=== PATIENT | male | born 1980 | race Caucasian/White ===

== ENCOUNTER → 2017-02-06 | Outpatient (CLI) | payer MEDICARE, MEDICAID ==
[~2017-02-06] MED LIST: AMARYL 2MG TABLE2 MG PO; AUGMENTIN 875-1 EACH PO; BACTRIM DS 8001 TAB PO; BENAZEPRIL40 MG PO; CEPHALEXIN500 M2 PO; CLINDAMYCIN HC300 MG PO; ENDOCET 325 MG-1 TA1 PO; GLYBURIDE 5MG TA5 MG PO; HCTZ/LISINOPRIL1 TA3 PO; JANUVIA100 MG PO; KEFLEX 500MG.500 MG PO; LISINOPRIL/HCTZ1 TA3 PO; MEDROL 4MG. DOSE4 MG PO; METFORMIN1000 MG PO; MUCINEX1200 MG PO; PROMETHAZINE D118 ML PO; PROVENTIL0.09 MG/A1 IH; SEPTRA DS 800 M1 TAB PO; TESSALON PERLE100 M1 PO; VICODIN 5/500 T1 TAB PO
== END ==
LOC: SL 12:20
DX: I10 Essential (primary) hypertension (principal); E66.9 Obesity, unspecified; R07.89 Other chest pain; G47.33 Obstructive sleep apnea (adult) (pediatric); E78.5 Hyperlipidemia, unspecified; E11.9 Type 2 diabetes mellitus without complications; D75.1 Secondary polycythemia
CPT/HCPCS: G0399-TC

== ENCOUNTER 2017-04-30 12:36 | Emergency (ER) | payer MEDICARE, MEDICAID ==
[~2017-04-30] VITALS: Ht 185.4 cm; Wt 171.9 kg
--- OUTSIDE RECORDS SUMMARY | 2017-04-30 12:51 | External Medical Summary Rpt ---
Author Author , OMAR Nguyen OMAR Address Unknown Phone [email or web address] Care Team Providers Care Church Official Name Role Phone [facility], Unavailable Unavailable [facility], Unavailable Unavailable [facility] Unavailable Unavailable ANESTHESIA, [facility] RAMOS, RAMOS Unavailable Unavailable RODRÍGUEZ BEASLEY, Unavailable Unavailable RODRÍGUEZ BEASLEY, CATRACHITA ENCARNACION, Unavailable Unavailable CHATA CALIX DEPA, Unavailable Unavailable DHAVAL VELAZQUEZ Unavailable Unavailable IRAJ PUENTES, Unavailable Unavailable IRAJ PUENTES [facility] Unavailable Unavailable HOSPITAL, [facility] Unavailable Unavailable HOSPITA, [facility] Unavailable Unavailable PRACTICE, [facility], Unavailable Unavailable [facility] Unavailable Unavailable INC, [facility] Unavailable Unavailable HOSPITAL P, [facility] P [facility], Unavailable Unavailable [facility] MARA, Unavailable Unavailable MARA STEVE [facility] Unavailable Unavailable [facility], [facility] LAYLA RICH JR, JR Unavailable Unavailable [facility] Unavailable Unavailable [facility], [facility] M E D SUPPLIES, M E D Unavailable Unavailable SUPPLIES Carmen Puentes MD, Unavailable Unavailable RADHA Rodriguez MD, JR Unavailable Ashleigh Hernandez, RADHA MALDONADO [facility] Unavailable Unavailable LAB, [facility] HAILE CID, Unavailable Unavailable PALAKHAILE LYN ERIN, ERIN Unavailable Unavailable [id number], Unavailable Unavailable [id number] PINKY SONI AND Unavailable Unavailable JOHAN SANCHEZ, Unavailable Unavailable JOHAN SANCHEZ SHOTWELL Unavailable Unavailable SOL[facility] MORE, SOLVIK Unavailable Unavailable [facility] ESTHER SANTANA Unavailable Unavailable CAROLINE, CAROLINE SAGE, Unavailable Unavailable INC KIMBERLY GROVER, Unavailable Unavailable KIMBERLY GROVER JR, WECHMAN Unavailable Unavailable JR SHARP ARON Unavailable Unavailable Purpose Continuity of Care Document - 11-03-2008 through 2016 Problems Code Diagnosis DOS Provider Status E11.9 TYPE 2 04-15-2017 DIABETES MELLITUS WITHOUT COMPLICATIO NS E66.01 MORBID 04-15-2017 (SEVERE) OBESITY DUE TO EXCESS CALORIES I10 ESSENTIAL 04-15-2017 (PRIMARY) HYPERTENSIO N K21.9 GASTRO-ESOP 04-15-2017 HAGE[facility] REFLUX DISEASE WITHOUT ESOPHAGITIS K29.70 GASTRITIS, 04-15-2017 UNSPECIFIED , WITHOUT BLEEDING R10.13 EPIGASTRIC 04-15-2017 PAIN Z68.42 BODY MASS 04-15-2017 INDEX (BMI) 45.0-49.9, ADULT Z72.0 TOBACCO USE 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 C DRUGS E663 OVERWEIGHT 03-15-2017 [facility] E78.00 PURE 03-08-2017 HYPERCHOLES TEROLEMIA, UNSPECIFIED S61.012A LACERATION 03-08-2017 WITHOUT FOREIGN BODY OF LEFT THUMB WITHOUT DAMAGE TO NAIL, INITIAL ENCOUNTER S69.90XA UNSPECIFIED 03-08-2017 INJURY OF UNSPECIFIED WRIST, HAND AND FINGER(S), INITIAL ENCOUNTER W26.0XXA CONTACT 03-08-2017 WITH KNIFE, INITIAL ENCOUNTER Y92.009 UNSPECIFIED 03-08-2017 PLACE IN UNSPECIFIED [facility]ACE OF OCCURRENCE OF THE EXTERNAL CAUSE Z87.891 PERSONAL 03-08-2017 HISTORY OF NICOTINE DEPENDENCE E119 TYPE 2 03-03-2017 [facility] DIABETES COMMUNTIY MELLITUS HOSPITA WITHOUT COMPLICATIO NS E7800 PURE 03-03-2017 [facility] HYPERCHOLES COMMUNTIY TEROLEMIA HOSPITA UNSPECIFIED I10 ESSENTIAL 03-03-2017 [facility]IMARY N EMERGENCY HYPERTENSIO SERV N [id number] LACERATION 03-03-2017 [facility] W/O FB LT N EMERGENCY THUMB W/O SERV DAMAGE NAIL INIT T583HNU CONTACT 03-03-2017 [facility] WITH KNIFE N EMERGENCY INITIAL SERV ENCOUNTER S10541 PERSONAL 03-03-2017 [facility] HISTORY OF COMMUNTIY NICOTINE HOSPITA DEPENDENCE Z01.818 ENCOUNTER 02-26-2017 FOR OTHER PREPROCEDUR AL EXAMINATION Z71.3 DIETARY 02-26-2017 COUNSELING AND SURVEILLANC E E6601 MORBID 02-19-2017 [facility] OBESITY DUE INC TO EXCESS CALORIES Z720 TOBACCO USE 02-19-2017 [facility] INC U40899 OTHER LONG 02-19-2017 [facility] TERM [facility] CURRENT INC DRUG THERAPY 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 [facility] A INC E669 OBESITY 02-06-2017 [facility] UNSPECIFIED [facility] INC E785 HYPERLIPIDE 02-06-2017 [facility] UNSPECIFIED INC G4733 OBSTRUCTIVE 02-06-2017 [facility] SLEEP [facility] APNEA ADULT INC PEDIATRIC R0789 OTHER CHEST 02-06-2017 [facility] PAIN [facility] INC E12307 ENCOUNTER 02-05-2017 [facility] FOR OTHER [facility] PREPROCEDUR INC AL EXAMINATION G47.33 OBSTRUCTIVE 01-31-2017 SLEEP APNEA (ADULT) (PEDIATRIC) R07.9 CHEST PAIN, 01-31-2017 UNSPECIFIED R079 CHEST PAIN 01-29-2017 [facility] UNSPECIFIED COMMUNTIY HOSPITA 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 N GROUP R5383 OTHER 01-22-2017 [facility] FATIGUE PHYSICIANS GROUP R07.89 OTHER CHEST 01-16-2017 PAIN N529 MALE 01-15-2017 [facility] ERECTILE FAMILY DYSFUNCTION PRACTICE UNSPECIFIED R51 HEADACHE 01-05-2017 [facility] P J309 ALLERGIC 01-01-2017 [facility] RHINITIS FAMILY UNSPECIFIED PRACTICE J209 ACUTE 12-07-2016 [facility] UNSPECIFIED INC 250.00 250.00 DIAB 06-25-2013 [facility], TYPE Hospital II OR UNSPEC TYPE, NOT UNCNTRLD 305.1 305.1 06-25-2013 [place] TOBACCO USE [facility] 401.9 401.9 06-25-2013 [place] HYPERTENSIO [facility] 682.6 682.6 06-25-2013 [place] CELLULITIS [facility] V12.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 06-15-2013 [facility] METHICILLIN RESISTANT STAPHYLOCOC CUS AUREUS V5481 AFTERCARE 01-01-2012 [facility] JOINT [facility]OCIA REPLACEMENT 2689 UNSPECIFIED 12-03-2011 [facility] VITAMIN D [facility] DEFICIENCY HOSP 67987 MORBID 12-03-2011 [facility] OBESITY [facility] HOSP 2851 ACUTE 12-03-2011 [facility] POSTHEMORRH [facility]TH[facility]OX[facility] AGIC ANEMIA HOSP 30118 OBSTRUCTIVE 12-03-2011 [facility] SLEEP [facility] APNEA HOSP 60454 OTHER ACUTE 12-03-2011 [facility] [place] ANESTHESIA POSTOPERATI VE PAIN 76201 PRIMARY 12-03-2011 [facility]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 58890 LOC 12-03-2011 [facility] OSTEOARTHRO [facility]TH[facility]OX[facility] S NOT SPEC HOSP PRIM/SEC LOWER LEG 66577 PAIN IN 12-03-2011 [facility] [place] JOINT, ANESTHESIA LOWER LEG 7226 DEGENERATIO 12-03-2011 [facility] N [facility]TH[facility] INTERVERTEB HOSP RAL DISC SITE UNSPEC 12205 HYPOXEMIA 12-03-2011 [facility] V8543 BODY MASS 12-03-2011 [facility] INDEX [facility]THODOX[facility] 50.0-59.9 HOSP ADULT 02273 UNSPECIFIED 12-21-2008 D[facility] DISEASE OF JOHAN Ortiz PHARYNX 83068 UNSPECIFIED 12-21-2008 [facility] SLEEP JOHAN Ortiz APNEA 48891 DYSPHAGIA 12-21-2008 RAPHAEL SANCHEZIFIED JOHAN G 53800 OBESITY, 12-09-2008 [facility] UNSPECIFIED HEALTHCARE CENTER 7823 EDEMA 12-09-2008 [facility] HEALTHCARE CENTER 56338 OTHER 12-09-2008 [facility] ABNORMAL HEALTHCARE GLUCOSE CENTER 83146 DIAB W/O 12-02-2008 M E D MENTION SUPPLIES COMP TYPE II/UNS TYPE UNCNTRL 5110 PLEURISY 12-01-2008 [facility] WITHOUT HEALTHCARE MENTION CENTER EFFUS/[place] [address] CHEST PAIN 11-30-2008 [facility] UNSPECIFIED N EMERGENCY PHYS INC 07951 PRECORDIAL 11-28-2008 [facility] 91337 OTHER CHEST 11-28-2008 [facility] PROF SERV 4013 UNSPECIFIED 11-26-2008 [facility] ESSENTIAL HEALTHCARE HYPERTENSIO CENTER N 11638 ESOPHAGEAL 11-26-2008 [facility] REFLUX HEALTHCARE CENTER 23682 HYPERSOMNIA 11-22-2008 DANIEL WITH SLEEP JOHAN G APNEA UNSPECIFIED 2859 UNSPECIFIED 11-18-2008 [facility] 54057 OTHER 11-18-2008 [facility] INSUFFICIEN HOSPITAL CY NEC 43640 REFLUX 11-18-2008 PATHOLOGY & ESOPHAGITIS CYTOLOGY LAB 58619 OTHER 11-18-2008 [facility] DISORDER OF HOSPITAL STOMACH AND DUODENUM 5693 HEMORRHAGE 11-18-2008 [place] OF RECTUM ANESTHESIA AND ANUS GROUP PSC 50902 DIARRHEA 11-18-2008 [facility] 14535 HYPERTROPHY 11-15-2008 DANIEL OF TONSILS JOHAN Ortiz TRAVIS 28765 SHORTNESS 11-05-2008 [facility] [place] OF BREATH RADIOLOGY 21760 WHEEZING 11-05-2008 [facility] 04988 POLYURIA 11-04-2008 [facility] 7915 GLYCOSURIA 11-03-2008 [facility] E55.9 VITAMIN D DEFICIENCY, UNSPECIFIED J20.9 ACUTE BRONCHITIS, UNSPECIFIED R53.83 OTHER FATIGUE Allergies, Adverse Reactions, Alerts Type Allergy to substance Adverse Reaction to Substance Substance Reaction Severity NO KNOWN ALLERGIES Unknown Unknown Clinical Alert Notifications Alert Diabetes: no eye exam in the last 365 days Diabetes: no influenza vaccine in the last 365 days Diabetes: no urine protein screening in the last 365 days Medications Na ND Rx Da Fi Fi Am Da Di Ph RX Ph St me C No te ll ll ou ys ag ar # ys at rm s nt no ma ic us Or Da si cy ia de te s n re d LI 63 09 0 No DO 32 -2 CA 30 5- Lo IN 20 20 ng E 11 13 er HC 0 L Ac 1% ti ve AL CL 00 09 0 No IN 40 -2 DA 94 5- Lo MY 05 20 ng CI 50 13 er N 3 15 Ac 0 ti MG ve /M L AD DV AN SO 00 09 0 No DI 40 -2 UM 97 5- Lo 10 20 ng CH 16 13 er LO 7 RI Ac DE ti ve 0. 9% SO LN JUSTICE 51 09 0 No LF 07 -1 AM 90 6- Lo ET 12 20 ng HO 82 13 er XA 0 ZO Ac LE ti -T ve MP DS TA BL ET JUSTICE 51 03 0 No LF 07 -2 AM 90 1- Lo ET 12 20 ng HO 82 13 er XA 0 ZO Ac LE ti -T ve MP DS TA BL ET NE 00 02 03 01 30 30 BA 24 PO Ac XI 18 -1 -[address] ti UM 65 0- 6- 00 RS 45 ON ve [address] 03 09 09 PH HE 1 AR NR 40 MA Y CY MG CA PS UL E 00 03 03 00 30 30 BA 24 DA Ac 08 -0 -1 .0 KE 52 BN ti 51 4- 2- 00 RS 49 EY ve 71 20 20 80 09 09 PH GI 2 AR NA MA CY 00 03 03 00 21 7 RI 77 WA Ac 60 -0 -1 .0 TE 35 GN ti 34 3- 2- 00 18 ER ve 01 20 20 AI 92 09 09 D PH 8 PH IL AR LI M P #3 L 93 8 MS 00 02 03 00 6. 15 BA 24 DA Ac OV 08 -2 -1 70 KE 50 BN ti EN 51 7- 2- 0 RS 67 EY ve TI 13 20 20 L 20 09 09 PH GI HF 1 AR NA A MA 90 CY MC G IN PEÑA LE R ME 65 03 03 00 60 30 BA 24 DA Ac TF 86 -0 -1 .0 KE 52 BN ti OR 20 4- 2- 00 RS 48 EY ve VT 00 20 20 N 80 09 09 PH GI HC 5 AR NA L MA 50 CY 0 MG TA BL ET 00 03 03 00 15 3 RI 77 WA Ac 40 -0 -1 .0 TE 35 GN ti 60 3- 2- 00 19 ER ve 36 20 20 AI 30 09 09 D PH 1 PH IL AR LI M P #3 L 93 8 00 02 03 00 30 30 BA 24 DA Ac 08 -2 -1 .0 KE 50 BN ti 51 7- 2- 00 RS 68 EY ve 71 20 20 70 09 09 PH GI 1 AR NA MA CY FU 00 03 03 00 30 30 BA 24 DA Ac RO 17 -0 -1 .0 KE 52 BN ti SE 22 4- 2- 00 RS 50 EY ve VT 90 20 20 DE 78 09 09 PH GI 0 AR NA 40 MA CY MG TA BL ET 52 02 02 00 1. 1 BA 24 JE Ac 26 -1 -2 00 KE 43 NN ti 80 2- 6- 0 RS 51 IN ve 50 20 20 GS 20 09 09 PH -C 1 AR ON MA KL CY IN KA RE N NE 00 02 02 00 30 30 BA 24 PO Ac XI 18 -1 -[address] ti UM 65 0- 6- 00 RS 45 ON ve [address] 03 09 09 PH HE 1 AR NR 40 MA Y CY MG CA PS UL E HY 00 02 02 00 30 30 BA [address] 17 -0 -1 .0 KE 40 BN ti OC 22 5- 2- 00 RS 73 EY ve HL 08 20 20 OR 38 09 09 PH GI OT 0 AR NA HI MA AZ CY ID E 25 MG TA B Vital Signs 06-25-2013 00:36 Name Value Interpretat Reference Comment ion Range BP 90 mm[Hg] Diastolic BP Systolic 129 mm[Hg] Heart 111 /min Rate/Pulse O2% 95 % Respiratory 20 /min Rate 06-24-2013 22:56 Name Value Interpretat Reference Comment ion Range BP 94 mm[Hg] Diastolic BP Systolic 151 mm[Hg] Heart 93 /min Rate/Pulse O2% 99 % Respiratory 20 /min Rate 06-15-2013 22:33 Name Value Interpretat Reference Comment ion Range BP 100 mm[Hg] Diastolic BP Systolic 160 mm[Hg] Heart 100 /min Rate/Pulse O2% 96 % Respiratory 18 /min Rate 06-15-2013 22:32 Name Value Interpretat Reference Comment ion Range BP 100 mm[Hg] Diastolic BP Systolic 160 mm[Hg] Heart 100 /min Rate/Pulse O2% 96 % Respiratory 18 /min Rate 12-18-2012 23:40 Name Value Interpretat Reference Comment ion Range BP 70 mm[Hg] Diastolic BP Systolic 145 mm[Hg] Heart 102 /min Rate/Pulse O2% 93 % Respiratory 20 /min Rate 12-18-2012 22:55 Name Value Interpretat Reference Comment ion Range BP 86 mm[Hg] Diastolic BP Systolic 140 mm[Hg] Heart 110 /min Rate/Pulse O2% 97 % Respiratory 20 /min Rate Results Labs Lab Lab Date Result Refere Interp Status Commen Order Detail nces retati t Range on Hemoglobin A1c in Blood (02-19-2017 14:26) Hemoglo 7.8 % 0.0% High complet bin A1c 017 - ed in 14:26 7.0% Blood Procedures Procedure DOS Code Location Performer Comment SIMPLE 44214 [facility] 7 [facility]I SCALP/NEC EMERGENCY K/AX/SUZI SERV T/TRUNK 2.5CM/< [place] [address] [facility] THYROID 7 [facility] STIMULATI [place] [address] [facility] IRON 7 [place] [address] [facility] FOLIC 7 [facility] ACID INC INC SERUM COMPREHEN 59692 [facility] D[facility] SIVE 7 [facility] [address] [facility] VITAMIN A 7 [facility] INC INC COLLECTIO 55731 [facility] D[facility] N VENOUS 7 [facility] [place] [address] [facility] THIAMINE- 7 [facility] VITAMIN [place] B-1 [place] [address] [facility] PHOSPHORU 7 [facility] [place] [address] [facility] D[facility] PARATHORM 7 [facility] ONE INC INC ORGANIC 94919 [facility] ACID 1 7 [facility] [place] [address] [facility] MAGNESIUM 7 [place] [address] [facility] FERRITIN 7 [facility]OS[facility] INC INC 25 50846 [facility] D[facility] HYDROXY 7 [facility] INCLUDES INC INC FRACTIONS IF PERFORMED DRUG TEST G0480 [facility] DEFINITV [address] ID INC INC METH P DAY 1-7 DRUG CL BLOOD 37879 [facility] COUNT 7 [facility] COMPLETE INC INC AUTO&AUTO DIFRNTL WBC PREALBUMI 09307 [facility] N 7 [facility] INC INC HEMOGLOBI 03758 [facility] N 7 [facility] GLYCOSYLA INC INC SONAL A1C LIPID 73671 [facility] PANEL 7 [facility] INC INC HST G0399 AZCK ZACK W/TYPE 7 [facility] III INC INC PRTBLE MON UNATTENDE D MIN 4 CH ECG 09726 [facility] JANNETH ROUTINE 7 PHYSICIAN ECG S GROUP W/LEAST 12 LDS I&R ONLY ECG 20268 [facility] ROUTINE 7 [facility] ECG INC INC W/LEAST 12 LDS TRCG ONLY W/O I&R CV STRS 37883 [facility] SANTANA TST 7 N XERS&/OR CARDIOLOG RX CONT Y ECG W/O I&R CV STRS 51214 [facility] TST 7 N XERS&/OR CARDIOLOG RX CONT Y ECG I&R ONLY TECHNETIU A9502 [facility] TC-99M 7 N N TETROFOSM COMMUNTIY COMMUNTIY IN DX PER HOSPITA HOSPITA STUDY DOSE CV STRS 22927 [facility] TST 7 N N XERS&/OR COMMUNTIY COMMUNTIY RX CONT HOSPITA HOSPITA ECG TRCG ONLY ECHO 85288 [facility] TTHRC R-T 7 N N 2D COMMUNTIY COMMUNTIY W/WOM-MOD HOSPITA HOSPITA E COMPL SPEC&COLR D MYOCARDIA 51284 [facility] SPECT 7 N N MULTIPLE COMMUNTIY COMMUNTIY [place] [address] [facility] THYROXINE 7 MEM HOSP [facility] [place] [address] [facility] D[facility] THYROID 7 [facility] HOSP STIMULATI INC INC NG HORMONE TSH THERAPEUT 31662 [facility] 7 N FAMILY PROPHYLAC PRACTICE TIC/DX INJECTION SUBQ/IM ECG 79516 [facility] ROUTINE 7 [facility] HOSP ECG INC INC W/LEAST 12 LDS TRCG ONLY W/O I&R ECG 23472 [facility] JANNETH ROUTINE 7 PHYSICIAN ECG S GROUP W/LEAST 12 LDS I&R ONLY ECG 73196 [facility] RICH JR ROUTINE 7 [facility]PITAL W/LEAST P 12 LDS I&R ONLY RADIOLOGI 43020 [place] RAMOS C EXAM 7 MEDICAL CHEST 2 IMAGING VIEWS ASS FRONTAL&L ATERAL CREATINE 89210 [facility] KINASE MB 7 [facility] FRACTION INC INC ONLY COMPREHEN 68716 [facility] D[facility] SIVE 7 [facility] METABOLIC INC INC PANEL COLLECTIO 62023 [facility] D[facility] N VENOUS 7 [facility] HOSP BLOOD INC INC VENIPUNCT URE ECG 44995 [facility] ROUTINE 7 MEM HOS[facility] ECG INC INC W/LEAST 12 LDS TRCG ONLY W/O I&R THER 49959 [facility] PROPH/DX 7 MEM H[facility] NJX IV INC INC PUSH SINGLE/1S T SBST/DRUG CREATINE 64630 [facility] KINASE 7 [facility] H[facility] TOTAL INC INC THERAPEUT 34559 [facility] D[facility] IC 7 [facility] INJECTION INC INC IV PUSH EACH NEW DRUG BLOOD 59991 [facility] COUNT 7 [facility] COMPLETE INC INC AUTO&AUTO DIFRNTL WBC LIPID 48250 [facility] PANEL 7 [facility] [place] [address] [facility] D[facility] TROPONIN 7 [facility] HOSP QUANTITAT INC INC ANISH THERAPEUT 34830 [facility] RISHI IC 7 N FAMILY PROPHYLAC PRACTICE TIC/DX INJECTION SUBQ/IM INJ J0702 [facility] RISHI BETAMETHA 7 N FAMILY SONE PRACTICE ACETATE & PHOSPHATE 3 MG HOSPITAL G0463 [facility] D[facility] OUTPATIEN 7 MEM H[facility] MEM [facility]OS[facility] T CLIN INC INC VISIT ASSESS & MGMT PT IAADIADOO 27579 [facility] 7 MEM HOS[facility] INFLUENZA INC INC IAADIADOO 87524 [facility] DIXNO 7 MEM HOSP [facility] STREPTOCO INC INC CCUS GROUP A THERAPEUT 71583 [facility] ERIN IC 7 N FAMILY PROPHYLAC PRACTICE TIC/DX INJECTION SUBQ/IM RADIOLOGI 71847 ADAL [facility]ER[facility] 2 EXAMINATI ORTHOPEDI ON KNEE C ASSOCIA 1/2 VIEWS ARTHRP 36675 ADAL MCGINNIS 2 CONDYLE&P ORTHOPEDI LATU C ASSOCIA MEDIAL&LA T COMPARTME NTS INJECTION 83927 [facility] 2 [place] MORE ANESTHETI ANESTHESI [place] [address] [facility] GUIDANCE 2 [place] MORE NEEDLE ANESTHESI PLACEMENT A IMG S&I ANESTH 64972 [facility] OPEN/SURG 2 [place] MORE ARTHRS ANESTHESI TOTAL A KNEE ARTHROPLA STY TOTAL 8154 [facility] KNEE 2 [facility] HOSP NT LARYNGOSC 13371 DANIEL SANCHEZ, MAURO 9 JOHAN Ortiz FLEXIBLE DIAGNOSTI C NORMAL A4256 M E D M E D LOW AND 9 SUPPLIES SUPPLIES HIGH CALIBRATO R SOLUTION/ CHIPS BLD GLU A4253 M E D M E D TEST/REAG 9 SUPPLIES SUPPLIES T STRIPS HOME BLD GLU MON-50 REPL RICK A4235 M E D M E D LITHIUM 9 SUPPLIES SUPPLIES MED NECES HAN BG MON OWN PT EA LANCETS A4259 M E D M E D PER BOX 9 SUPPLIES SUPPLIES OF 100 SPRING-PO A4258 M E D M E D WERED 9 SUPPLIES SUPPLIES DEVICE FOR LANCET EACH HEADGEAR A7035 CAROLINE VELAZQUEZ, USED 9 INC INC W/POSITIV E AIRWAY PRESSURE DEVICE CONTINUOU E0601 CAROLINE VELAZQUEZ, S 9 INC INC POSITIVE AIRWAY PRESSURE DEVICE FILTER A7038 [facility] VELAZQUEZ, DISPBL 9 INC INC USED W/POS ARWAY PRESSURE DEVICE NASL A7034 CAROLINE VELAZQUEZ INTRFCE 9 INC INC POS ARWAY PRSS DEVC W/WO HEAD STRAP TUBING A7037 CAROLINE VELAZQUEZ, USED WITH 9 INC INC POSITIVE AIRWAY PRESSURE DEVICE ECG 88830 [facility], ROUTINE 9 ROSI KIMBERLY L ECG EMERGENCY W/LEAST PHYS INC 12 LDS I&R ONLY RADIOLOGI 89232 [facility] [place] CLARITA, C EXAM 9 RADIOLOGY DAVID G CHEST 2 VIEWS FRONTAL&[place] [address] [facility] AMYLASE 9 [facility] INC INC COMPREHEN 32535 [facility] D[facility] SIVE 9 [facility] METABOLIC INC INC PANEL CREATINE 88756 [facility] D[facility] KINASE 9 [facility] H[facility] [place] [place] [address] [facility] D[facility] LIPASE 9 [facility] H[facility] INC INC CREATINE 37600 [facility] KINASE MB 9 [facility] H[facility] FRACTION INC INC ONLY ECG 69995 [facility] D[facility] ROUTINE 9 [facility] ECG INC INC W/LEAST 12 LDS TRCG ONLY W/O I&R RADIOLOGI 21821 Erik GROSS 9 MEDICAL RODRÍGUEZ EXAMINATI IMAGING ON CHEST ASSOCIATE SINGLE S VIEW FRONTAL BLOOD 64334 [facility] COUNT 9 [facility]OS[facility] COMPLETE INC INC AUTO&AUTO DIFRNTL WBC HEMOGLOBI 51068 [facility] D[facility] N 9 [facility] HOSP GLYCOSYLA INC INC SONAL A1C RHYTHM 18359 [facility] ECG 1-3 9 [facility] HOSP LEADS INC INC TRACING ONLY W/O I&R ECG 39417 ZACK MTZMISg ROUTINE 9 [facility] RADHA F W/LEAST PROF SERV 12 LDS [place] [address] [facility] D[facility] TROPONIN 9 [facility] HOSP QUANTITAT INC INC ANISH NONINVASI 24223 [facility], 9 [facility] EAR/PULSE E CENTER OXIMETRY SINGLE DETER POLYSOM 20461 [facility] 6/>YRS 9 N N SLEEP 4/> [facility] JAMAAL ATTND EGD 05200 MCCLURE- MCCLURE- TRANSORAL 9 ANITA, ANITA, BIOPSY POWER STEVE SINGLE/MU LTIPLE GLUC BLD 18504 [facility] GLUC MNTR 9 N N DEV [facility] FDA SPEC HOME USE RADIOLOGI 31379 [facility] C 9 N N EXAMINATI [facility] SINGLE VIEW FRONTAL UNCLASSIF J3490 [facility] IED DRUGS 9 N N [facility] SPCL STN 15884 PATHOLOGY PATHOLOGY 2 I&R 9 & & EXCPT CYTOLOGY CYTOLOGY MICROORG/ LAB LAB ENZYME/IM CYT COLONOSCO 88511 [facility] PY 9 N N W/BIOPSY [facility] LTIPLE ANES [address] [place] DEPA, UPPER GI 9 ANESTHESI CHATA ENDOSCOPY A GROUP [place] [address] PATHOLOGY PATHOLOGY SURG 9 & & PATHOLOGY CYTOLOGY CYTOLOGY LAB LAB GROSS&JOANNE ROSCOPIC EXAM UNLISTED 285[facility] ANESTHESI 9 N N A [facility] LARYNGOS[facility] 62954 DANIEL SANCHEZ, MAURO 9 JOHAN Ortiz FLEXIBLE DIAGNOSTI C RADIOLOGI 02178 [facility] C EXAM 9 N N CHEST 2 [facility] FRONTAL&L ATERAL HEMOGLOBI 69349 [facility] N 9 AMERIC AMERIC GLYCOSYLA HOLDING HOLDING SONAL A1C COLLECTIO 53860 HORIZON CATRACHITA, N VENOUS 9 [facility] BLOOD E CENTER VENIPUNCT URE GENERAL 41461 LAB [facility] 9 AMERIC AMERIC PANEL HOLDING HOLDING LIPID 46163 LAB [facility] PANEL 9 [employer]IC [employer] HOLDING URNLS DIP 62802 HORIZON CATRACHITA, 9 [facility] SH[facility]ANK STICK/TAB E CENTER LET RGNT AUTO W/O MICROSCOP Y OTHER 86.04 Carmen ALCAZAR & Dhaval CARRION SUBQ I D Encounters Encounter Start End Date Code Location Performer Type Date OFFICE 87588 [facility] DHAVAL CHENEN 7 7 PHYSICIAN T VISIT 5 S GROUP MINUTES [facility] - 7 7 N OUTPATIEN COMMUNTIY T HOSPITA EMERGENCY 73105 [facility] 7 7 ROSI DEPARTMEN EMERGENCY T VISIT SERV MODERATE SEVERITY EMERGENCY 76744 [facility] 7 7 N DEPARTMEN COMMUNTIY T VISIT HOSPITA HIGH/URGE NT SEVERITY OFFICE 16221 [facility] DHAVAL CHENEN 7 7 PHYSICIAN T VISIT S GROUP 15 MINUTES [facility] ZACK - OTHER 7 7 [facility] - 7 7 [facility] OUTPATIEN INC T OFFICE 50297 [facility] JANNETH OUTPATIEN 7 7 PHYSICIAN T VISIT S GROUP 25 MINUTES [facility]OSP[facility] - 7 7 [facility] OUTPATIEN INC T HOSPITAL [facility] - 7 7 N OUTPATIEN COMMUNTIY T HOSPITA OFFICE 52993 [facility] DHAVAL OUTPATIEN 7 7 PHYSICIAN T VISIT S GROUP 15 MINUTES HOSPITAL [facility] - OTHER 7 7 [facility] INC OFFICE 10223 [facility] OUTPATIEN 7 7 PHYSICIAN T NEW 60 S GROUP MINUTES HOSPITAL [facility] - 7 7 [facility] OUTPATIEN INC T EMERGENCY 67026 [facility] ENRIQUE PUENTES DEPT 7 7 PHYSICIAN VISIT S, [facility] HIGH SEVERITY& THREAT [facility] ZACK - 7 7 [facility] OUTPATIEN INC T EMERGENCY 42315 ZACK 7 7 [facility] DEPARTMEN INC T VISIT HIGH/URGE NT SEVERITY [facility] T VIS[facility] PRACTICE 15 MINUTES [facility] - 7 7 [facility] OUTPATIEN INC T Emergency KAYLEEN Puentes MD (ER) 3 22:00 3 00:36 [facility] Emergency KAYLEEN Puentes MD (ER) 3 22:08 3 22:33 [facility] Emergency KAYLEEN Holley (ER) 3 22:31 3 23:40 [facility] CENTRAL - 2 2 ORTHODOXY INPATIENT HOSP OFFICE 06234 DANIEL SANCHEZ OUTPATIEN 9 9 JOHAN Ortiz T VISIT 25 MINUTES OFFICE 75461 [place] 9 9 [facility] T VISIT E CENTER 15 MINUTES OFFICE 92611 CASSANDRA DOMÍNGUEZ OUTPATIEN 9 9 [facility] T VISIT E CENTER 15 MINUTES EMERGENCY 73496 [facility] DEPT 9 9 ROSI KIMBERLY Dorantes VISIT EMERGENCY HIGH PHYS INC SEVERITY& THREAT FUN OFFICE 56576 DANIEL SANCHEZ OUTPATIEN 9 9 JOHAN Ortiz T VISIT 15 MINUTES HOSPITAL [facility] - 9 9 [facility] OUTPATIEN INC T EMERGENCY 57649 KARMEN PUENTES, DEPT 9 9 [facility] S VISIT CORPORATI HIGH ON SEVERITY& THREAT FUN EMERGENCY 15502 ZACK 9 9 [facility] DEPARTMEN INC T VISIT HIGH/URGE NT SEVERITY OFFICE 39734 [facility] MACK DOMÍNGUEZ 9 9 [facility] T VISIT E CENTER 25 MINUTES [facility] - 9 9 N [facility] - 9 9 N [facility] OFFICE 26134 DANIEL SANCHEZ, SADAF 9 9 JOHAN Ortiz ION NEW/ESTAB PATIENT 60 MIN OFFICE 94808 [facility]ACK [place] 9 9 [facility] V[facility] 15 MINUTES [facility] - 9 9 N [facility]
--- OUTSIDE RECORDS SUMMARY | 2017-04-30 12:51 | External Medical Summary Rpt ---
Author Author , OMAR Nguyen OMAR Address Unknown Phone [email or web address] Care Team Providers Care Keypunch Operators Supervisor Name Role Phone [facility], [facility]available Unavailable [facility], Unavailable Unavailable [facility] [place] Unavailable Unavailable [facility], [facility] [place] [facility] RAMOS, RAMOS Unavailable Unavailable RODRÍGUEZ BEASLEY, Unavailable Unavailable RODRÍGUEZ BEASLEY, CATRACHITA ENCARNACION, Unavailable Unavailable CHATA CALIX DEPA, Unavailable Unavailable DHAVAL VELAZQUEZ Unavailable Unavailable IRAJ PUENTES, Unavailable Unavailable IRAJ PUENTES [facility] Unavailable Unavailable HOSPITAL, [facility] Unavailable Unavailable HOSPITA, [facility] Unavailable Unavailable PRACTICE, [facility] DAVID OTTO, Unavailable Unavailable DAVID OTTO [facility] Unavailable Unavailable INC, [facility] Unavailable Unavailable HOSPITAL P, [facility] P [facility], Unavailable Unavailable [facility] MARA, Unavailable Unavailable MARA STEVE KAREN [facility] Unavailable Unavailable [facility], [facility] LAYLA RICH JR, JR Unavailable Unavailable [facility] Unavailable Unavailable [facility], [facility] M E D SUPPLIES, M E D Unavailable Unavailable SUPPLIES Carmen Puentes MD, Unavailable Unavailable RADHA Rodriguez MD, JR Unavailable Ashleigh Hernandez, RADHA MALDONADO [facility] Unavailable Unavailable LAB, [facility] HAIEL CID, Unavailable Unavailable PALAKHAILE LYN ERIN, ERIN Unavailable Unavailable [id number], Unavailable Unavailable [id number] PINKY SONI AND Unavailable Unavailable JOHAN SANCHEZ, Unavailable Unavailable JOHAN SANCHEZ SHOTWELL Unavailable Unavailable SOLVIK MORE, SOLVI[facility] Unavailable Unavailable [facility] Unavailable Unavailable [facility] SERV, [facility] ESTHER SANTANA Unavailable Unavailable CAROLINE, [...] 45.0-49.9, ADULT Z72.0 TOBACCO USE 04-15-2017 Z79.84 TRIBAL JUDGE 04-15-2017 (CURRENT) USE OF ORAL HYPOGLYCEMI C DRUGS E663 OVERWEIGHT 03-15-2017 [facility] E78.00 PURE 03-08-2017 HYPERCHOLES TEROLEMIA, UNSPECIFIED S61.012A LACERATION 03-08-2017 WITHOUT FOREIGN BODY OF LEFT THUMB WITHOUT DAMAGE TO NAIL, INITIAL ENCOUNTER S69.90XA UNSPECIFIED 03-08-2017 INJURY OF UNSPECIFIED WRIST, HAND AND FINGER(S), INITIAL ENCOUNTER W26.0XXA CONTACT 03-08-2017 WITH KNIFE, INITIAL ENCOUNTER Y92.009 UNSPECIFIED 03-08-2017 PLACE IN UNSPECIFIED [facility] RES[facility]ENCE THE PLACE OF OCCURRENCE OF THE EXTERNAL CAUSE Z87.891 PERSONAL 03-08-2017 HISTORY OF NICOTINE DEPENDENCE E119 TYPE 2 03-03-2017 [place] DIABETES COMMUNTIY MELLITUS HOSPITA WITHOUT COMPLICATIO NS E7800 PURE 03-03-2017 [place] HYPERCHOLES COMMUNTIY TEROLEMIA HOSPITA UNSPECIFIED I10 ESSENTIAL 03-03-2017 [facility] PRIMARY N EMERGENCY HYPERTENSIO SERV N X84269V LACERATION 03-03-2017 [facility] W/O FB LT N EMERGENCY THUMB W/O SERV DAMAGE NAIL INIT W718HBG CONTACT 03-03-2017 [place] WITH KNIFE N EMERGENCY INITIAL SERV ENCOUNTER Q44713 PERSONAL 03-03-2017 [place] HISTORY OF COMMUNTIY NICOTINE HOSPITA DEPENDENCE Z01.818 ENCOUNTER 02-26-2017 FOR OTHER PREPROCEDUR AL EXAMINATION Z71.3 DIETARY 02-26-2017 COUNSELING AND SURVEILLANC E E6601 MORBID 02-19-2017 [facility] SE[facility]ERE [facility] OBESITY DUE INC TO EXCESS CALORIES Z720 TOBACCO USE 02-19-2017 [facility] INC O58710 OTHER LONG 02-19-2017 [facility] TERM [facility] CURRENT INC DRUG THERAPY 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 [facility] A INC E669 OBESITY 02-06-2017 [facility] UNSPECIFIED [facility] H[facility] INC E785 HYPERLIPIDE 02-06-2017 [facility] UNSPECIFIED INC G4733 OBSTRUCTIVE 02-06-2017 [facility] SLEEP [facility] APNEA ADULT INC PEDIATRIC R0789 OTHER CHEST 02-06-2017 [facility] PAIN [facility] INC S29014 ENCOUNTER 02-05-2017 [facility] FOR OTHER [facility] PREPROCEDUR INC AL EXAMINATION G47.33 OBSTRUCTIVE 01-31-2017 SLEEP APNEA (ADULT) (PEDIATRIC) R07.9 CHEST PAIN, 01-31-2017 UNSPECIFIED R079 CHEST PAIN 01-29-2017 [place] UNSPECIFIED COMMUNTIY HOSPITA 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 N GROUP R5383 OTHER 01-22-2017 [facility] FATIGUE PHYSICIANS GROUP R07.89 OTHER CHEST 01-16-2017 PAIN N529 MALE 01-15-2017 [place] ERECTILE FAMILY DYSFUNCTION PRACTICE UNSPECIFIED R51 HEADACHE 01-05-2017 [facility] P J309 ALLERGIC 01-01-2017 [place] RHINITIS FAMILY UNSPECIFIED PRACTICE J209 ACUTE 12-07-2016 [facility] UNSPECIFIED INC 250.00 250.00 DIAB 06-25-2013 [facility], TYPE Hospital II OR UNSPEC TYPE, NOT UNCNTRLD 305.1 305.1 06-25-2013 [place] TOBACCO USE [facility] 401.9 401.9 06-25-2013 [place] HYPERTENSIO [facility] Hospital 682.6 682.6 06-25-2013 [place] CELLULITIS [facility] V12.04 V12.04 06-15-2013 [facility] METHICILLIN RESISTANT STAPHYLOCOC CUS AUREUS V5481 AFTERCARE 01-01-2012 [place] [facility] JOINT ASSOCIA REPLACEMENT 2689 UNSPECIFIED 12-03-2011 [facility] VITAMIN D [facility] DEFICIENCY HOSP 86015 MORBID 12-03-2011 [facility] OBESITY [facility] 2851 ACUTE 12-03-2011 [facility] POSTHEMORRH [facility] AGIC ANEMIA HOSP 76326 OBSTRUCTIVE 12-03-2011 [facility] SLEEP [facility] APNEA HOSP 52407 OTHER ACUTE 12-03-2011 [facility] [place] ANESTHESIA POSTOPERATI VE PAIN 63913 PRIMARY 12-03-2011 [place]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 80020 LOC 12-03-2011 [facility] OSTEOARTHRO [facility] S NOT SPEC HOSP PRIM/SEC LOWER LEG 03208 PAIN IN 12-03-2011 [facility] [place] JOINT, ANESTHESIA LOWER LEG 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 SITE UNSPEC 52754 HYPOXEMIA 12-03-2011 [facility] V8543 BODY MASS 12-03-2011 [facility] INDEX [facility] 50.0-59.9 HOSP ADULT 19696 UNSPECIFIED 12-21-2008 DANIEL DISEASE OF JOHAN Ortiz PHARYNX 26861 UNSPECIFIED 12-21-2008 DANIEL SLEEP JOHAN Ortiz APNEA 77917 DYSPHAGIA 12-21-2008 RAPHAEL SANCHEZIFIED JOHAN G 31159 OBESITY, 12-09-2008 [facility] UNSPECIFIED HEALTHCARE CENTER 7823 EDEMA 12-09-2008 [facility] HEALTHCARE CENTER 34999 OTHER 12-09-2008 [facility] ABNORMAL HEALTHCARE GLUCOSE CENTER 68741 DIAB W/O 12-02-2008 M E D MENTION SUPPLIES COMP TYPE II/UNS TYPE UNCNTRL 5110 PLEURISY 12-01-2008 [facility] WITHOUT HEALTHCARE MENTION CENTER EFFUS/[place] [address] CHEST PAIN 11-30-2008 [facility] UNSPECIFIED N EMERGENCY PHYS INC 24097 PRECORDIAL 11-28-2008 [place] 95135 OTHER CHEST 11-28-2008 [facility] PROF SERV 4014 UNSPECIFIED 11-26-2008 [facility] ESSENTIAL HEALTHCARE HYPERTENSIO CENTER N 29009 ESOPHAGEAL 11-26-2008 [facility] REFLUX HEALTHCARE CENTER 14963 HYPERSOMNIA 11-22-2008 DANIEL WITH SLEEP JOHAN G APNEA UNSPECIFIED 2859 UNSPECIFIED 11-18-2008 [facility] 17598 OTHER 11-18-2008 [place] PULMONARY [facility] CY NEC 54930 REFLUX 11-18-2008 PATHOLOGY & ESOPHAGITIS CYTOLOGY LAB 76872 OTHER 11-18-2008 [facility] STOMACH AND DUODENUM 5693 HEMORRHAGE 11-18-2008 [place] OF RECTUM ANESTHESIA AND ANUS GROUP PSC 99527 DIARRHEA 11-18-2008 [facility] 36998 HYPERTROPHY 11-15-2008 DANIEL OF TONSILS JOHAN Ortiz TRAVIS 06081 SHORTNESS 11-05-2008 [facility] [place] OF BREATH RADIOLOGY 80360 WHEEZING 11-05-2008 [facility] 82289 POLYURIA 11-04-2008 [facility] 7915 GLYCOSURIA 11-03-2008 [facility] E55.9 VITAMIN D DEFICIENCY, UNSPECIFIED J20.9 ACUTE [...] LI M P #3 L 93 8 UT 00 02 03 00 6. 15 BA [...] 4- 2- 00 RS 48 EY ve LA 00 20 20 N 80 09 09 [...] 4- 2- 00 RS 50 EY ve LA 90 20 20 DE 78 09 09 [...] Procedure DOS Code Location Performer Comment SIMPLE 81153 [facility] REPA[facility] 7 ROSI SCALP/NEC EMERGENCY K/AX/SUZI SERV T/TRUNK 2.5CM/< [place] [address] [facility] DIXON THYROID 7 [facility] STIMULATI [place] [address] Z[facility] DIXON IRON 7 [place] [address] ZACK DIXON FOLIC 7 MEM HOS[facility] ACID INC INC SERUM COMPREHEN 36948 Z[facility] DIX[facility] SIVE 7 [facility] [address] Z[facility] DIXON VITAMIN A 7 MEM H[facility]OS[facility] INC INC COLLECTIO 45841 [facility] DIX[facility] N VENOUS 7 MEM [facility] [place] [address] ZACK DIXON THIAMINE- 7 MEM HOSP MEM HOSP VITAMIN INC INC B-1 [place] [address] ZACK DIXON PHOSPHORU 7 MEM HOS[facility] [place] [address] Z[facility] DIXON PARATHORM 7 MEM HOSP [facility]OS[facility] ONE INC INC ORGANIC 20240 ZACK DIXON ACID 1 7 MEM H[facility] [place] [address] ZACK DIXON MAGNESIUM 7 [place] [address] ZACK DIXON FERRITIN 7 MEM HOSP [facility]OS[facility] INC INC 25 92619 ZACK DIXON HYDROXY 7 MEM HOS[facility] INCLUDES INC INC FRACTIONS IF PERFORMED DRUG TEST G0480 [facility] DEFINITV [address] ID INC INC METH P DAY 1-7 DRUG CL BLOOD 82088 [facility]ACK DIXON COUNT 7 MEM H[facility] MEM [facility]OS[facility] COMPLETE INC INC AUTO&AUTO DIFRNTL WBC PREALBUMI 38362 ZACK DIXON N 7 MEM HOSP MEM HOSP INC INC HEMOGLOBI 84167 ZACK DIXON N 7 MEM HOSP MEM HOSP GLYCOSYLA INC INC SONAL A1C LIPID 01459 [facility] DIXON PANEL 7 MEM HOSP MEM HOSP INC INC HST G0399 ZACK ZACK W/TYPE 7 MEM HOSP [facility]OS[facility] III INC INC PRTBLE MON UNATTENDE D MIN 4 CH ECG 43473 [facility] JANNETH ROUTINE 7 PHYSICIAN ECG S GROUP W/LEAST 12 LDS I&R ONLY ECG 56913 ZACK DIXON ROUTINE 7 MEM HOSP [facility] ECG INC INC W/LEAST 12 LDS TRCG ONLY W/O I&R CV STRS 30281 GLEN[facility] SANTANA TST 7 N XERS&/OR CARDIOLOG RX CONT Y ECG W/O I&R CV STRS 45285 [facility] TST 7 N XERS&/OR CARDIOLOG RX CONT Y ECG I&R ONLY TECHNETIU A9502 [facility] TC-99M 7 N N TETROFOSM COMMUNTIY COMMUNTIY IN DX PER HOSPITA HOSPITA STUDY DOSE CV STRS 98743 [facility] TST 7 N N XERS&/OR COMMUNTIY COMMUNTIY RX CONT HOSPITA HOSPITA ECG TRCG ONLY ECHO 47258 [facility] TTHRC R-T 7 N N 2D COMMUNTIY COMMUNTIY W/WOM-MOD HOSPITA HOSPITA E COMPL SPEC&COLR D MYOCARDIA 58346 [facility] SPECT 7 N N MULTIPLE COMMUNTIY COMMUNTIY [place] [address] Z[facility] DIXON THYROXINE 7 MEM HOSP [facility] [place] [address] ZACK DIXON THYROID 7 [facility] HOSP STIMULATI INC INC NG HORMONE TSH THERAPEUT 92337 [facility] 7 N FAMILY PROPHYLAC PRACTICE TIC/DX INJECTION SUBQ/IM ECG 46305 ZACK DIXON ROUTINE 7 [facility] HOSP ECG INC INC W/LEAST 12 LDS TRCG ONLY W/O I&R ECG 38144 [facility] JANNETH ROUTINE 7 PHYSICIAN ECG S GROUP W/LEAST 12 LDS I&R ONLY ECG 24401 ZACK RICH JR ROUTINE [address] [facility] HOSPITAL W/LEAST P 12 LDS I&R ONLY RADIOLOGI 60635 [place] RAMOS C EXAM 7 MEDICAL CHEST 2 IMAGING VIEWS ASS FRONTAL&L ATERAL CREATINE 62780 ZACK DIXON KINASE MB 7 [facility] FRACTION INC INC ONLY COMPREHEN 09753 ZACK DIXON SIVE 7 [facility] METABOLIC INC INC PANEL COLLECTIO 16989 ZACK DIXON N VENOUS 7 [facility] HOSP BLOOD INC INC VENIPUNCT URE ECG 51682 [facility]ACK DIXON ROUTINE 7 MEM HOSP [facility] ECG INC INC W/LEAST 12 LDS TRCG ONLY W/O I&R THER 52391 [facility] DIXON PROPH/DX 7 MEM HOSP [facility] NJX IV INC INC PUSH SINGLE/1S T SBST/DRUG CREATINE 14489 ZACK DIXON KINASE 7 MEM HOSP [facility] TOTAL INC INC THERAPEUT 92826 ZACK DIXON IC 7 [facility] INJECTION INC INC IV PUSH EACH NEW DRUG BLOOD 29017 ZACK DIXON COUNT 7 [facility] COMPLETE INC INC AUTO&AUTO DIFRNTL WBC LIPID 57579 [facility] DIXON PANEL 7 [facility] [place] [address] ZACK DIXON TROPONIN 7 [facility] HOSP QUANTITAT INC INC ANISH THERAPEUT 21165 [facility] RISHI IC 7 N FAMILY PROPHYLAC PRACTICE TIC/DX INJECTION SUBQ/IM INJ J0702 [facility] RISHI BETAMETHA 7 N FAMILY SONE PRACTICE ACETATE & PHOSPHATE 3 [facility] G0463 [facility] D[facility] OUTPATIEN 7 MEM HOSP MEM HOSP T CLIN INC INC VISIT ASSESS & MGMT PT IAADIADOO 34697 ZACK DIXON 7 MEM HOSP [facility] INFLUENZA INC INC IAADIADOO 51239 ZACK DIXON 7 MEM HOSP [facility] STREPTOCO INC INC CCUS GROUP A THERAPEUT 29245 [facility] ERIN IC 7 N FAMILY PROPHYLAC PRACTICE TIC/DX INJECTION SUBQ/IM RADIOLOGI 31409 ADAL GERMAIN 2 EXAMINATI ORTHOPEDI ON KNEE C ASSOCIA 1/2 VIEWS ARTHRP 44112 ADAL MCGINNIS 2 CONDYLE&P ORTHOPEDI LATU C ASSOCIA MEDIAL&LA T COMPARTME NTS INJECTION 35105 [facility] 2 [place] MORE ANESTHETI ANESTHESI [place] [address] [facility] GUIDANCE 2 [place] MORE NEEDLE ANESTHESI PLACEMENT A IMG S&I ANESTH 47252 [facility] OPEN/SURG 2 [place] MORE ARTHRS ANESTHESI TOTAL A KNEE ARTHROPLA STY TOTAL 8154 [facility] KNEE 2 [facility] HOSP NT LARYNGOSC 09353 DANIEL SANCHEZ, MAURO 9 JOHAN Ortiz FLEXIBLE [...] INC INC POSITIVE AIRWAY PRESSURE DEVICE ECG 05953 [facility], ROUTINE 9 ROSI KIMBERLY L ECG EMERGENCY W/LEAST PHYS INC 12 LDS I&R ONLY RADIOLOGI 39364 [facility] [place] CLARITA, C EXAM 9 RADIOLOGY DAVID G CHEST 2 VIEWS FRONTAL&[place] [address] ZACK DIXON AMYLASE 9 MEM HOSP MEM HOSP INC INC COMPREHEN 67831 [facility] D[facility] SIVE 9 MEM HOSP [facility] METABOLIC INC INC PANEL CREATINE 79707 [facility] DIXON KINASE 9 MEM HOSP [facility] [place] [address] ZACK DIXON LIPASE 9 MEM HOSP [facility] INC INC CREATINE 75640 ZACK DIXON KINASE MB 9 MEM HOSP [facility]OS[facility] FRACTION INC INC ONLY ECG 72001 ZACK DIXON ROUTINE 9 MEM HOSP [facility] ECG INC INC W/LEAST 12 LDS TRCG ONLY W/O I&R RADIOLOGI 29741 Erik GROSS 9 MEDICAL RODRÍGUEZ EXAMINATI IMAGING ON CHEST ASSOCIATE SINGLE S VIEW FRONTAL BLOOD 03900 Z[facility] DIXON COUNT 9 MEM HOSP MEM HOSP COMPLETE INC INC AUTO&AUTO DIFRNTL WBC HEMOGLOBI 37929 ZACK DIXON N 9 [facility] HOSP GLYCOSYLA INC INC SONAL A1C RHYTHM 91510 ZACK DIXON ECG 1-3 9 [facility] HOSP LEADS INC INC TRACING ONLY W/O I&R ECG 26775 ZACK MTZMISg ROUTINE 9 [facility] RADHA F W/LEAST PROF SERV 12 LDS I&[place] [address] ZACK DIXON TROPONIN 9 [facility] HOSP QUANTITAT INC INC ANISH NONINVASI 06000 [facility], 9 [facility] EAR/PULSE E CENTER OXIMETRY SINGLE DETER POLYSOM 11964 [facility] 6/>YRS 9 N N SLEEP 4/> [facility] JAMAAL ATTND EGD 20861 MCCLURE- MCCLURE- TRANSORAL 9 ANITA, ANITA, BIOPSY POWER STEVE SINGLE/MU LTIPLE GLUC BLD 76597 [facility] GLUC MNTR 9 N N DEV [facility] FDA SPEC HOME USE RADIOLOGI 42327 [facility] C 9 N N EXAMINATI [facility] SINGLE VIEW FRONTAL UNCLASSIF J3490 [facility] IED DRUGS 9 N N [facility] SPCL STN 81757 PATHOLOGY PATHOLOGY 2 I&R 9 & & EXCPT CYTOLOGY CYTOLOGY MICROORG/ LAB LAB ENZYME/IM CYT COLONOSCO 10953 [facility] PY 9 N N W/BIOPSY [facility] SINGLE/MU HOSPITAL HOSPITAL LTIPLE ANES 10188 [place] DEPA, UPPER GI 9 ANESTHESI CHATA ENDOSCOPY A GROUP [place] [address] PATHOLOGY PATHOLOGY SURG 9 & & PATHOLOGY CYTOLOGY CYTOLOGY LAB LAB GROSS&JOANNE ROSCOPIC EXAM UNLISTED 49511 [facility] ANESTHESI 9 N N A [facility] 65589 DANIEL SANCHEZ, MAURO 9 JOHAN Ortiz FLEXIBLE DIAGNOSTI C RADIOLOGI 86586 [facility] C EXAM 9 N N CHEST 2 [facility] FRONTAL&L ATERAL HEMOGLOBI 72262 [facility] N 9 [facility] SONAL A1C COLLECTIO 01327 [facility] CATRACH[facility], N VENOUS 9 [facility] BLOOD E CENTER VENIPUNCT URE GENERAL 96025 [facility] 9 [facility] PANEL HOLDING HOLDING LIPID 54883 [facility] PANEL 9 [facility] URNLS DIP 37461 [facility] CAT[facility], 9 [facility] STICK/TAB E CENTER LET RGNT AUTO W/O MICROSCOP Y OTHER 86.04 Carmen ALCAZAR & Dhaval CARRION SUBQ I D Encounters Encounter Start End Date Code Location Performer Type Date OFFICE 19372 [facility] DHAVAL CHENEN 7 7 PHYSICIAN T VISIT 5 S GROUP MINUTES [facility] - 7 7 N OUTPATIEN COMMUNTIY T HOSPITA EMERGENCY 64740 [facility] 7 7 ROSI DEPARTMEN EMERGENCY T VISIT SERV MODERATE SEVERITY EMERGENCY 82548 [facility] 7 7 N DEPARTMEN COMMUNTIY T VISIT HOSPITA HIGH/URGE NT SEVERITY OFFICE 69144 [facility] DHAVAL CHENEN 7 7 PHYSICIAN T VISIT S GROUP 15 MINUTES [facility] ZACK - OTHER 7 7 MEM HOSP [facility] ZACK - 7 7 MEM HOSP OUTPATIEN INC T OFFICE 99025 [facility] JANNETH OUTPATIEN 7 7 PHYSICIAN T VISIT S GROUP 25 MINUTES HOSPITAL [facility] - 7 7 MEM H[facility]P OUTPATIEN INC T HOSPITAL GLENIS - 7 7 N OUTPATIEN COMMUNTIY T HOSPITA OFFICE 97274 [facility] DHAVAL OUTPATIEN 7 7 PHYSICIAN T VISIT S GROUP 15 MINUTES HOSPITAL Z[facility] - OTHER 7 7 MEM HOSP INC OFFICE 41798 [facility] 7 7 PHYSICIAN T NEW 60 S GROUP MINUTES HOSPITAL ZACK - 7 7 MEM HOSP OUTPATIEN INC T EMERGENCY 17891 [facility] ENRIQUE PUENTES DEPT 7 7 PHYSICIAN VISIT S, [facility] Z[facility] - 7 7 MEM HOSP OUTPATIEN INC T EMERGENCY 51370 Z[facility] 7 7 MEM HOSP DEPARTMEN INC T VISIT HIGH/URGE NT SEVERITY OFFICE 54085 [facility] 7 N FAMILY JR T VISIT PRACTICE 15 MINUTES HOSPITAL Z[facility] - 7 7 [facility] OUTPATIEN INC T Emergency KAYLEEN Puentes MD (ER) 3 22:00 3 00:36 [facility] Emergency KAYLEEN Puentes MD (ER) 3 22:08 3 22:33 [facility] Emergency KAYLEEN Holley (ER) 3 22:31 3 23:40 [facility]AL - 2 2 [facility] OFFICE 49701 DANIEL SANCHEZ OUTPATIEN 9 9 JOHAN Ortiz T VISIT 25 MINUTES OFFICE 88223 [facility] [place] 9 9 [facility] T VISIT E CENTER 15 MINUTES OFFICE 14814 CASSANDRA DOMÍNGUEZ OUTPATIEN 9 9 [facility] VISIT E CENTER 15 MINUTES EMERGENCY 99795 [facility] DEPT 9 9 ROSI KIMBERLY Dorantes VISIT EMERGENCY HIGH PHYS INC SEVERITY& THREAT FUN OFFICE 71658 DANIEL SANCHEZ OUTPATIEN 9 9 JOHAN Ortiz T VISIT 15 MINUTES HOSP[facility] - 9 9 [facility] OUT[facility]IEN [facility] T EMERGENCY 10818 KARMEN PUENTES, DEPT 9 9 [facility] S VISIT CORPORATI HIGH ON SEVERITY& THREAT FUN EMERGENCY 60089 ZACK 9 9 [facility] DEPARTMEN [facility] T VISIT HIGH/URGE NT SEVERITY OFFICE 17465 [facility] MACK DOMÍNGUEZ 9 9 [facility] T [facility]ISIT E CENTER 25 MINUTES HOSPITAL [facility] - 9 9 N [facility] - 9 9 N [facility] OFFICE 87794 DANIEL SANCHEZ, SADAF 9 9 JOHAN Ortiz ION NEW/ESTAB PATIENT 60 MIN OFFICE 08459 MACK BUTT 9 9 [facility] V[facility] 15 MINUTES HOSPITAL [facility] - 9 9 N [facility]
--- OUTSIDE RECORDS SUMMARY | 2017-04-30 12:54 | External Medical Summary Rpt ---
Author Author , OMAR NELSON Address Unknown Phone [email or web address]Sellf Care Team Providers Care Scullion Chief Name Role Phone Elisabeth KYLE, Unavailable Unavailable Elisabeth KYLE [facility], Unavailable [facility]available [facility], Unavailable Unavailable [facility] Unavailable Unavailable [facility], [facility] [place] [facility] CATRACHITA, SHASHANK, CATRACHITA, Unavailable Unavailable SHASHANK DEPACHATA DEPA, Unavailable Unavailable MARÍA ELENA VELAZQUEZ Unavailable Unavailable IRAJ RING, Unavailable Unavailable IRAJ RING [facility] Unavailable Unavailable HOSPITAL, [facility] Unavailable Unavailable HOSPITA, [facility] Unavailable Unavailable PRACTICE, [facility] DAVID OTTO, Unavailable Unavailable DAVID OTTO [facility] Unavailable Unavailable INC, [facility] Unavailable Unavailable HOSPITAL P, [facility], Unavailable Unavailable [facility] MARA, Unavailable Unavailable MARA STEVE K[facility]EN [facility] Unavailable Unavailable [facility], [facility] LAYLA RICH JR, JR Unavailable Unavailable [facility] Un[facility], [facility] M E D SUPPLIES, M E D Unavailable Unavailable SUPPLIES RADHA MALDONADO JR Unavailable Unavailable F, RADHA MALDONADO [facility] Unavailable Unavailable LAB, [facility] HAILE CID, Unavailable Unavailable HAILE CID REINHART Unavailable Unavailable [id number], Unavailable Unavailable [id number] PINKY AND, PINKY AND Unavailable Unavailable JOHAN SANCHEZ, Unavailable Unavailable JOHAN SANCHEZ SHOTWELL Unavailable Unavailable [facility] MORE, [facility] Unavailable Unavailable [facility] Unavailable Un[facility], COUNT INCLUDES [facility] ESTHER SANTANA Unavailable Unavailable [facility], INC, [facility], Unavailable Unavailable INC KIMBERLY GROVER, Unavailable Unavailable KIMBERLY GROVER JR, WECHMAN Unavailable Unavailable ARON DORADO Unavailable Unavailable Purpose Continuity of Care Document - 11-03-2008 through 2016 Problems Code Diagnosis DOS Provider Status E663 OVERWEIGHT 03-15-2017 [facility] E119 TYPE 2 03-03-2017 [facility] DIABETES [facility] MELLITUS HOSPITA WITHOUT COMPLICATIO NS E7800 PURE 03-03-2017 [facility] HYPERCHOLES COMMUNTIY TEROLEMIA HOSPITA UNSPECIFIED I10 ESSENTIAL 03-03-2017 [facility] PRIMARY N EMERGENCY HYPERTENSIO SERV N [id number] LACERATION 03-03-2017 [facility] W/O FB LT N EMERGENCY THUMB W/O SERV DAMAGE NAIL INIT S493RAO CONTACT 03-03-2017 [facility] WITH KNIFE N EMERGENCY INITIAL SERV ENCOUNTER G39096 PERSONAL 03-03-2017 [facility] HISTORY OF COMMUNTIY NICOTINE HOSPITA DEPENDENCE E6601 MORBID 02-19-2017 [facility] SEVERE [facility] OBESITY DUE INC TO EXCESS CALORIES Z720 TOBACCO USE 02-19-2017 [facility] INC L89443 OTHER LONG 02-19-2017 [facility] TERM [facility] CURRENT INC DRUG THERAPY 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 [facility] A INC E669 OBESITY 02-06-2017 [facility] UNSPECIFIED [facility] INC E785 HYPERLIPIDE 02-06-2017 [facility] MONICA [facility] UNSPECIFIED INC G4733 OBSTRUCTIVE 02-06-2017 [facility] SLEEP [facility] APNEA ADULT INC PEDIATRIC R0789 OTHER CHEST 02-06-2017 [facility] PAIN [facility] INC U92361 ENCOUNTER 02-05-2017 [facility] FOR OTHER [facility] PREPROCEDUR INC AL EXAMINATION R079 CHEST PAIN 01-29-2017 [facility] UNSPECIFIED COMMUNTIY HOSPITA 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 N GROUP R5383 OTHER 01-22-2017 [facility] FATIGUE PHYSIC[facility]ANS GROUP N529 MALE 01-15-2017 [facility] ERECTILE FAMILY DYSFUNCTION PRACTICE UNSPECIFIED R51 HEADACHE 01-05-2017 [facility] P J309 ALLERGIC 01-01-2017 [facility] RHINITIS FAMILY UNSPECIFIED PRACTICE J209 ACUTE 12-07-2016 [facility] BRONCHITIS [facility] UNSPECIFIED INC V5481 AFTERCARE 01-01-2012 [facility] JOINT ASSOCIA REPLACEMENT 2689 UNSPECIFIED 12-03-2011 [facility] VITAMIN D [facility] DEFICIENCY HOSP 79644 MORBID 12-03-2011 [facility]ITY [facility] 2851 ACUTE 12-03-2011 [facility] POSTHEMORRH [facility] AGIC ANEMIA HOSP 50668 OBSTRUCTIVE 12-03-2011 [facility] SLEEP [facility] APNEA HOSP 26183 OTHER ACUTE 12-03-2011 [facility] [place] ANESTHESIA POSTOPERATI VE PAIN 52858 PRIMARY 12-03-2011 [facility]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 09290 LOC 12-03-2011 [facility] OSTEOARTHRO [facility] S NOT SPEC HOSP PRIM/SEC LOWER LEG 84099 PAIN IN 12-03-2011 [facility] [place] JOINT, ANESTHESIA LOWER LEG 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 UNSPEC 33158 HYPOXEMIA 12-03-2011 [facility] V8543 BODY MASS 12-03-2011 [facility] INDEX [facility] 50.0-59.9 HOSP ADULT 49363 UNSPECIFIED 12-21-2008 DANIEL DISEASE OF JOHAN Ortiz PHARYNX 70686 UNSPECIFIED 12-21-2008 DANIEL SLEEP JOHAN G APNEA 13095 DYSPHAGIA 12-21-2008 DANIEL UNSPECIFIED JOHAN G 40716 OBESITY, 12-09-2008 [facility] UNSPECIFIED HEALTHCARE CENTER 7823 EDEMA 12-09-2008 [facility] HEALTHCARE CENTER 93722 OTHER 12-09-2008 [facility] ABNORMAL HEALTHCARE GLUCOSE CENTER 59251 DIAB W/O 12-02-2008 M E D MENTION SUPPLIES COMP TYPE II/UNS TYPE UNCNTRL 5110 PLEURISY 12-01-2008 [facility] WITHOUT HEALTHCARE MENTION CENTER EFFUS/[place] [address] CHEST PAIN 11-30-2008 [facility] UNSPECIFIED N EMERGENCY PHYS INC 17424 PRECORDIAL 11-28-2008 [email or web address] 23656 OTHER CHEST 11-28-2008 [facility] PROF SERV 4019 UNSPECIFIED 11-26-2008 [facility] ESSENTIAL HEALTHCARE HYPERTENSIO CENTER N 28902 ESOPHAGEAL 11-26-2008 [facility] REFLUX HEALTHCARE CENTER 73366 HYPERSOMNIA 11-22-2008 DANIEL WITH SLEEP JOHAN G APNEA UNSPECIFIED 2859 UNSPECIFIED 11-18-2008 [facility] 86795 OTHER 11-18-2008 [facility] [place] 36509 REFLUX 11-18-2008 PATHOLOGY & ESOPHAGITIS CYTOLOGY LAB 72718 OTHER 11-18-2008 [facility] STOMACH AND DUODENUM 5693 HEMORRHAGE 11-18-2008 [place] OF RECTUM ANESTHESIA AND ANUS GROUP [facility] 76593 DIARRHEA 11-18-2008 [facility] M[facility]ON[facility] 50461 HYPERTROPHY 11-15-2008 DANIEL OF TONSILS JOHAN Ortiz TRAVIS 79634 SHORTNESS 11-05-2008 [facility] [place] OF BREATH RADIOLOGY 86163 WHEEZING 11-05-2008 [facility] 55014 POLYURIA 11-04-2008 [facility] 7915 GLYCOSURIA 11-03-2008 [facility] Medications Na ND Rx Da Fi Fi Am Da Di Ph RX Ph St me C No te ll ll ou ys ag ar # ys at rm s nt no ma ic us Or Da si cy ia de te s n re d NE 00 02 03 01 30 30 BA 24 PO Ac XI 18 -1 -[address] ti UM 65 0- 6- 00 RS 45 ON ve [address] 03 09 09 PH HE 1 AR NR 40 MA Y CY MG CA PS UL E 00 03 03 00 21 7 RI 77 WA Ac 60 -0 -1 .0 TE 35 GN ti 34 3- 2- 00 18 ER ve 01 20 20 AI 92 09 09 D PH 8 PH IL AR LI M P #3 L 93 8 00 03 03 00 30 30 BA 24 DA Ac 08 -0 -1 .0 KE 52 BN ti 51 4- 2- 00 RS 49 EY ve 71 20 20 80 09 09 PH GI 2 AR NA MA CY 00 03 03 00 15 3 RI 77 WA Ac 40 -0 -1 .0 TE 35 GN ti 60 3- 2- 00 19 ER ve 36 20 20 AI 30 09 09 D PH 1 PH IL AR LI M P #3 L 93 8 ME 65 03 03 00 60 30 BA 24 DA Ac TF 86 -0 -1 .0 KE 52 BN ti OR 20 4- 2- 00 RS 48 EY ve GA 00 20 20 N 80 09 09 PH GI HC 5 AR NA L MA 50 CY 0 MG TA BL ET FU 00 03 03 00 30 30 BA 24 DA Ac RO 17 -0 -1 .0 KE 52 BN ti SE 22 4- 2- 00 RS 50 EY ve GA 90 20 20 DE 78 09 09 PH GI 0 AR NA 40 MA CY MG TA BL ET CT 00 02 03 00 6. 15 BA 24 DA Ac OV 08 -2 -1 70 KE 50 BN ti EN 51 7- 2- 0 RS 67 EY ve TI 13 20 20 L 20 09 09 PH GI HF 1 AR NA A MA 90 CY MC G IN PEÑA LE R 00 02 03 00 30 30 BA 24 DA Ac 08 -2 -1 .0 KE 50 BN ti 51 7- 2- 00 RS 68 EY ve 71 20 20 70 09 09 PH GI 1 AR NA MA CY NE 00 02 02 00 30 30 BA 24 PO Ac XI 18 -1 -[address] ti UM 65 0- 6- 00 RS 45 ON ve [address] 03 09 09 PH HE 1 AR NR 40 MA Y CY MG CA PS UL E 52 02 02 00 1. 1 BA 24 JE Ac 26 -1 -2 00 KE 43 NN ti 80 2- 6- 0 RS 51 IN ve 50 20 20 GS 20 09 09 PH -C 1 AR ON MA KL CY IN KA RE N HY 00 02 02 00 30 30 BA [address] 17 -0 -1 .0 KE 40 BN ti OC 22 5- 2- 00 RS 73 EY ve HL 08 20 20 OR 38 09 09 PH GI OT 0 AR NA HI MA AZ CY ID E 25 MG TA B Procedures Procedure DOS Code Location Performer Comment SIMPLE 96415 [facility] REPAIR 7 ROSI SCALP/NEC EMERGENCY K/AX/SUZI SERV T/TRUNK 2.5CM/< COLLECTIO 38254 [facility] D[facility] N VENOUS 7 [facility] BLOOD INC INC VENIPUNCT URE ORGANIC 28337 [facility] D[facility] ACID 1 7 [facility] [place] [address] Z[facility] DIXON PARATHORM 7 [facility] [place] [address] ZAKC DIXON PHOSPHORU 7 [facility] [place] [address] ZACK DIXON THIAMINE- 7 [facility] VITAMIN INC INC B-1 LIPID 92589 [facility] D[facility] PANEL 7 [facility] INC INC HEMOGLOBI 18156 [facility]ACK DIXON N 7 [facility] GLYCOSYLA INC INC SONAL A1C PREALBUMI 31273 [facility] D[facility] N 7 [facility] INC INC BLOOD 45961 [facility] COUNT 7 [facility] COMPLETE INC INC AUTO&[place] [address] ZACK DIXON VITAMIN A 7 [facility] INC INC COMPREHEN 96822 [facility] SIVE 7 [facility] [address] [facility] D[facility] FOLIC 7 [facility] [place] [address] [facility] DIX[facility] IRON 7 [place] [address] [facility] D[facility] THYROID 7 [facility] STIMULATI INC INC NG HORMONE TSH DRUG TEST G0480 [facility] DEFINITV [address] ID INC INC METH P DAY 1-7 DRUG CL 25 96932 [facility] HYDROXY 7 [facility] INCLUDES [place] [address] [facility] D[facility] FERRITIN 7 [place] [address] [facility] D[facility] MAGNESIUM 7 [facility] INC INC HST G0399 [facility] W/TYPE 7 [facility] III INC INC PRTBLE MON UNATTENDE D MIN 4 CH ECG 49669 [facility] ROUTINE 7 [facility] ECG INC INC W/LEAST 12 LDS TRCG ONLY W/O I&R ECG 52691 [facility] ROUTINE 7 PHYSICIAN ECG S GROUP W/LEAST 12 LDS I&R ONLY TECHNETIU A9502 [facility] TC-99M 7 N N TETROFOSM COMMUNTIY COMMUNTIY IN DX PER HOSPITA HOSPITA STUDY DOSE CV STRS 82378 [facility] TST 7 N N XERS&/OR COMMUNTIY COMMUNTIY RX CONT HOSPITA HOSPITA ECG TRCG ONLY CV STRS 47045 [facility] TST 7 N XERS&/OR CARDIOLOG RX CONT Y ECG W/O I&R MYOCARDIA 22928 [facility] L SPECT 7 N MULTIPLE CARDIOLOG STUDIES Y ECHO 30759 [facility] ESTHER TTHRC R-T 7 N 2D CARDIOLOG W/WOM-MOD Y E COMPL SPEC&COLR D CV STRS 28187 GLENIS SANTANA TST 7 N XERS&/OR CARDIOLOG RX CONT Y ECG I&[place] [address] [facility] D[facility] THYROID 7 [facility] STIMULATI [place] [address] ZACK DIXON THYROXINE 7 [facility] TOTAL INC INC ECG 25621 [facility] ROUTINE 7 [facility] ECG INC INC W/LEAST 12 LDS TRCG ONLY W/O I&R ECG 02461 [facility] JANNETH ROUTINE 7 PHYSICIAN ECG S GROUP W/LEAST 12 LDS I&R ONLY THERAPEUT 32229 OMARAMANDA KHAN IC 7 N FAMILY PROPHYLAC PRACTICE TIC/DX INJECTION SUBQ/IM CREATINE 35409 [facility] KINASE 7 [facility]OS[facility] TOTAL INC INC THER 94425 [facility] D[facility] PROPH/DX 7 [facility] NJX IV INC INC PUSH SINGLE/1S T SBST/DRUG ECG 27666 [facility] ROUTINE 7 [facility] ECG INC INC W/LEAST 12 LDS TRCG ONLY W/O I&[place] [address] [facility] D[facility] TROPONIN 7 [facility]OSP QUANTITAT INC INC ANISH LIPID 39005 [facility] D[facility] PANEL 7 [facility] INC INC BLOOD 27496 [facility] D[facility] COUNT 7 [facility] COMPLETE INC INC AUTO&AUTO DIFRNTL WBC RADIOLOGI 13728 [facility] C EXAM 7 [facility]OS[facility] CHEST 2 INC INC VIEWS FRONTAL&L ATERAL THERAPEUT 01814 [facility] D[facility] IC 7 [facility]OS[facility] INJECTION INC INC IV PUSH EACH NEW DRUG ECG 59215 ZACK RICH JR ROUTINE 7 [facility] W/LEAST P 12 LDS I&R ONLY COLLECTIO 03172 [facility] DIX[facility] N VENOUS 7 [facility]OS[facility] BLOOD INC INC VENIPUNCT URE COMPREHEN 06368 [facility] D[facility] SIVE 7 [facility] HOSP METABOLIC INC INC PANEL CREATINE 90396 [facility] D[facility] KINASE MB 7 MEM HOS[facility] FRACTION INC INC ONLY INJ J0702 [facility] WILLIAMROANOKE BETAMETHA 7 N FAMILY JR SONE PRACTICE ACETATE & PHOSPHATE 3 MG THERAPEUT 58618 [facility] RISHI IC 7 N FAMILY JR PROPHYLAC PRACTICE TIC/DX INJECTION SUBQ/IM HOSPITAL G0463 [facility] OUTPATIEN 7 [facility] H[facility] T CLIN INC INC VISIT ASSESS & MGMT PT IAADIADOO 30625 [facility] 7 [facility] STREPTOCO INC INC CCUS GROUP A IAADIADOO 89758 [facility] D[facility]ON 7 [facility] INFLUENZA INC INC THERAPEUT 77370 [facility] ERIN IC 7 N FAMILY PROPHYLAC PRACTICE TIC/DX INJECTION SUBQ/IM RADIOLOGI 88808 ADAL VANCE AND Erik 2 EXAMINATI ORTHOPEDI ON KNEE C ASSOCIA 1/2 VIEWS ANESTH 22179 [facility] OPEN/SURG 2 [place] MORE ARTHRS ANESTHESI TOTAL A KNEE ARTHROPLA STY 28314 [facility] GUIDANCE 2 [place] MORE NEEDLE ANESTHESI PLACEMENT A IMG S&I ARTHRP 48636 ADAL VANCE AND HALLEY 2 CONDYLE&P ORTHOPEDI LATU C ASSOCIA MEDIAL&LA T COMPARTME NTS INJECTION 68115 [facility] 2 [place] MORE ANESTHETI ANESTHESI C AGENT A FEMORAL NERVE SINGLE TOTAL 8154 [facility] KNEE 2 [facility] HOSP NT LARYNGOSC 78029 DANIEL SANCHEZ, MAURO 9 JOHAN Ortiz FLEXIBLE DIAGNOSTI C BLD GLU A4253 M E D M E D TEST/REAG 9 SUPPLIES SUPPLIES T STRIPS HOME BLD GLU MON-50 NORMAL A4256 M E D M E D LOW AND 9 SUPPLIES SUPPLIES HIGH CALIBRATO R SOLUTION/ CHIPS SPRING-PO A4258 M E D M E D WERED 9 SUPPLIES SUPPLIES DEVICE FOR LANCET EACH REPL RICK A4235 M E D M E D LITHIUM 9 SUPPLIES SUPPLIES MED NECES HAN BG MON OWN PT EA LANCETS A4259 M E D M E D PER BOX 9 SUPPLIES SUPPLIES OF 100 NASL A7034 CAROLINE VELAZQUEZ, INTRFCE 9 INC INC POS ARWAY PRSS DEVC W/WO HEAD STRAP HEADGEAR A7035 CAROLINE VELAZQUEZ, USED 9 INC INC W/POSITIV E AIRWAY PRESSURE DEVICE TUBING A7037 CAROLINE VELAZQUEZ, USED WITH 9 INC INC POSITIVE AIRWAY PRESSURE DEVICE CONTINUOU E0601 CAROLINE VELAZQUEZ, S 9 INC INC POSITIVE AIRWAY PRESSURE DEVICE FILTER A7038 CAROLINE VELAZQUEZ, DISPBL 9 INC INC USED W/POS ARWAY PRESSURE DEVICE ECG 33969 NORBERT GROVER, ROUTINE 9 ROSI KIMBERLY L ECG EMERGENCY W/LEAST PHYS INC 12 LDS I&R ONLY RADIOLOGI 49548 [facility] LETICIA OTTO, C EXAM 9 RADIOLOGY DAVID G CHEST 2 VIEWS FRONTAL&L ATERAL RHYTHM 44953 [facility] DIXON ECG 1-3 9 [facility] LEADS INC INC TRACING ONLY W/O I&R ECG 30998 [facility] MTZMIE ROUTINE 9 [facility] W/LEAST PROF SERV 12 LDS I&[place] [address] [facility] DIXON LIPASE 9 [facility] INC INC ECG 93221 [facility] D[facility] ROUTINE 9 [facility] ECG INC INC W/LEAST 12 LDS TRCG ONLY W/O I&R CREATINE 30464 [facility] KINASE 9 [facility] TOTAL INC INC HEMOGLOBI 82298 [facility] D[facility] N 9 [facility] GLYCOSY[place] [address] [facility] DIXON TROPONIN 9 [facility] QUANTITAT INC INC ANISH BLOOD 21771 [facility] COUNT 9 [facility] COMPLETE INC INC AUTO&AUTO DIFRNTL WBC RADIOLOGI 78984 [facility] DIXON C 9 [facility] EXAMINATI INC INC [place] [address] Z[facility] DIXON AMYLASE 9 [facility] INC INC CREATINE 01608 [facility] D[facility] KINASE MB 9 MEM H[facility] FRACTION INC INC ONLY COMPREHEN 36234 ZCAK ZACK SIVE 9 [facility] H[facility]P [facility] METABOLIC INC INC PANEL NONINVASI 86340 [facility] [place] 9 [facility] SHASHANK EAR/PULSE E CENTER OXIMETRY SINGLE DETER POLYSOM 88678 DANIEL SANCHEZ, 6/>YRS 9 JOHAN Ortiz SLEEP 4/> ADDL JAMAAL ATTND GLUC BLD 77388 [facility] GLUC MNTR 9 N N DEV [facility] FDA SPEC HOME USE UNLISTED 10243 [facility] ANESTHESI 9 N N A [facility] SPCL STN 24991 PATHOLOGY PATHOLOGY 2 I&R 9 & & EXCPT CYTOLOGY CYTOLOGY MICROORG/ LAB LAB ENZYME/IM CYT EGD 53357 MCCLURE- REN- TRANSORAL 9 ANITA, ANITA, BIOPSY POWER STEVE SINGLE/MU LTIPLE COLONOSCO 49547 MCCLUREMIKE MCCLURE- PY 9 ANITA, ANITA, W/BIOPSY POWER STEVE SINGLE/[place] [address] PATHOLOGY PATHOLOGY SURG 9 & & PATHOLOGY CYTOLOGY CYTOLOGY LAB LAB GROSS&JOANNE ROSCOPIC EXAM RADIOLOGI 15591 [facility] Erik WALDEN 9 RADIOLOGY J EXAMINATI ON CHEST SINGLE VIEW FRONTAL UNCLASSIF J3490 [facility] IED DRUGS 9 N N [facility] ANES 00363 [place] DEPA, UPPER GI 9 ANESTHESI CHATA ENDOSCOPY A GROUP PROXIMAL PSC TO DUODENUM LARYNGOSC 93029 DANIEL SANCHEZ OPY 9 JOHAN Ortiz FLEXIBLE DIAGNOSTI C RADIOLOGI 13841 [facility] Erik VASQUES EXAM 9 RADIOLOGY DAVID G CHEST 2 VIEWS FRONTAL&L ATERAL LIPID 21528 [facility] PANEL 9 [facility] HOLDING GENERAL 54356 [facility] 9 AMERIC AMERIC PANEL HOLDING HOLDING COLLECTIO 97103 CASSANDRA DOMÍNGUEZ, N VENOUS [address] [facility] SHASHANK BLOOD E CENTER VENIPUNCT URE HEMOGLOBI 81241 LAB [facility]STOP[facility] N 9 AMERIC JACEK GLYCOSYLA HOLDING HOLDING SONAL A1C URNLS DIP 52602 CASSANDRA DOMÍNGUEZ, 9 [facility] SHASHANK STICK/TAB E CENTER LET RGNT AUTO W/O MICROSCOP Y Encounters Encounter Start End Date Code Location Performer Type Date OFFICE 32687 [facility] MARÍA ELENA OUTPATIEN 7 7 PHYSICIAN T VISIT 5 S GROUP MINUTES [facility] - 7 7 N OUTPATIEN COMMUNTIY T [facility] EMER[facility]ENC[facility] 35082 [facility] 7 7 N DEPARTMEN COMMUNTIY T VISIT [facility] HIGH/URGE NT SEVERITY EMERGENCY 83079 [facility] 7 7 ROSI DEPARTMEN EMERGENCY T VISIT SERV MODERATE SEVERITY [facility] ZACK - OTHER 7 7 MEM HOS[facility] INC OFFICE 38695 [facility] MARÍA ELENA OUTPATIEN 7 7 PHYSICIAN T VISIT S GROUP 15 MINUTES HOSPITAL [facility] - 7 7 [facility] OUTPATIEN [facility] ZACK - 7 7 [facility]PATIEN [facility] OFFICE 21863 [facility] JANNETH OUTPATIEN 7 7 PHYSICIAN T VISIT S GROUP 25 MINUTES HOSPITAL [facility] - 7 7 N OUTPATIEN COMMUNTIY T [facility] ZACK - OTHER 7 7 MEM HOS[facility] INC OFFICE 38403 [facility] MARÍA ELENA OUTPATIEN 7 7 PHYSICIAN T VISIT S GROUP 15 MINUTES OFFICE 08959 [facility] JANNETH OUTPATIEN 7 7 PHYSICIAN T NEW 60 S GROUP [facility] ZACK - 7 7 MEM HOSP OUTPATIEN [facility] ZACK - 7 7 MEM HOSP OUTPATIEN INC T EMERGENCY 06341 Z[facility] 7 7 MEM HOSP DEPARTMEN INC T VISIT HIGH/URGE NT SEVERITY EMERGENCY 29957 [facility] ENRIQUE [facility] DEPT 7 7 PHYSICIAN VISIT S, [facility] HIGH SEVERITY& THREAT FUNCJ OFFICE 49132 [facility] OUTPATIEN 7 7 N FAMILY JR T VISIT PRACTICE 15 MINUTES HOSPITAL [facility] - 7 7 [facility] OUTPATIEN INC T HOSPITAL [facility] - 2 2 [facility] IN[facility]IENT [facility]P OFFICE 24730 DANIEL SANCHEZ OUTPATIEN 9 9 JOHAN Ortiz T VISIT 25 MINUTES OFFICE 66241 [facility] [place] 9 9 [facility]ALTH[facility] SHASHANK T VISIT E CENTER 15 MINUTES OFFICE 80303 [facility] [place] 9 9 [facility] SHASHANK T VISIT E CENTER 15 MINUTES EMERGENCY 55133 NORBERT GROVER, DEPT 9 9 ROSI Dorantes VISIT EMERGENCY HIGH PHYS INC SEVERITY& THREAT FUNJ OFFICE 14376 DANIEL SANCHEZ OUTPATIEN 9 9 JOHAN Ortiz T VISIT 15 MINUTES EMERGENCY 16799 KARMEN RING, DEPT 9 9 [facility] S VISIT CORPORATI HIGH ON SEVERITY& THREAT [facility] HOSPITAL ZACK - 9 9 [facility] OUTPATIEN INC T EMERGENCY 98430 Z[facility] 9 9 [facility] DEPARTMEN INC T VISIT HIGH/URGE NT SEVERITY OFFICE 23874 [facility] [place] 9 9 [facility] SHASHANK T VISIT E CENTER 25 MINUTES HOSPITAL [facility] - 9 9 N OUTPATIEN [facility] - 9 9 N OUTPATIEN CRITICAL [facility] H[facility] HOSPITAL OFFICE [id number] DANIEL SANCHEZ CONSULTAT 9 9 JOHAN MARAVILLA NEW/ESTAB PATIENT 60 MIN OFFICE [id number] [facility] [place] 9 9 [facility] VISIT [facility] 15 MINUT[facility] [place] [address] 9 N [facility]
--- OUTSIDE RECORDS SUMMARY | 2017-04-30 12:54 | External Medical Summary Rpt ---
Author Author , OMAR NELSON Address Unknown Phone [email or web address] Personal Care Device Care Team Providers Care College Teacher Name Role Phone Elisabeth KYLE, Unavailable Unavailable Elisabeth KYLE [facility], [facility], Unavailable Unavailable [facility] Unavailable Unavailable [facility], [facility] [place] [facility] CATRACHITA, SHASHANK, CATRACHITA, Unavailable Unavailable SHASHANK DEPACHATA DEPA, Unavailable Unavailable MARÍA ELENA VELAZQUEZ Unavailable Unavailable IRAJ RING, Unavailable Unavailable IRAJ RING [facility] Unavailable Unavailable HOSPITAL, [facility] Unavailable Unavailable HOSPITA, [facility] Unavailable Unavailable PRACTICE, [facility] DAVID OTTO, Unavailable Unavailable DAVID OTTO [facility] Unavailable Unavailable INC, [facility] Unavailable Unavailable HOSPITAL P, [facility] P [facility], Unavailable Unavailable [facility] MARA, Unavailable Unavailable MARA STEVE K[facility]EN [facility] Unavailable Unavailable [facility], [facility] LAYLA RICH JR, JR Unavailable Unavailable [facility] Unavailable Unavailable [facility], [facility] M E D SUPPLIES, M [...] [facility] Unavailable Unavailable [facility] SERV, [facility] ESTHER SANTANA Unavailable Unavailable [facility], [facility], Unavailable Unavailable INC KIMBERLY GROVER, Unavailable Unavailable KIMBERLY GROVER JR, WECHMAN Unavailable Unavailable ARON DORADO Unavailable Unavailable Purpose Continuity of Care Document - 11-03-2008 through 2016 Problems Code Diagnosis DOS Provider Status E663 OVERWEIGHT 03-15-2017 [facility] E119 TYPE 2 03-03-2017 [facility] DIABETES COMMUNTIY MELLITUS HOSPITA WITHOUT COMPLICATIO NS E7800 PURE 03-03-2017 [facility] HYPERCHOLES COMMUNTIY TEROLEMIA HOSPITA UNSPECIFIED I10 ESSENTIAL 03-03-2017 [facility] N [facility]ERG[facility]Y HYPERTENSIO SERV N [id number] LACERATION 03-03-2017 [facility] W/O FB LT N EMERGENCY THUMB W/O SERV DAMAGE NAIL INIT [id number] CONTACT 03-03-2017 [facility] WITH KNIFE N EMERGENCY INITIAL SERV ENCOUNTER 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 03-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 [facility] HISTORY OF COMMUNTIY NICOTINE HOSPITA DEPENDENCE E6601 MORBID 02-19-2017 [facility] SEVERE [facility] OBESITY DUE INC TO EXCESS CALORIES Z720 TOBACCO USE 02-19-2017 [facility] INC [id number] OTHER LONG 02-19-2017 [facility] TERM [facility] CURRENT INC DRUG THERAPY 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 [facility] A INC E669 OBESITY 02-06-2017 [facility] UNSPECIFIED [facility] INC E785 HYPERLIPIDE 02-06-2017 [facility] MONICA [facility] UNSPECIFIED INC G4733 OBSTRUCTIVE 02-06-2017 [facility] SLEEP [facility] APNEA ADULT INC PEDIATRIC R0789 OTHER CHEST 02-06-2017 [facility] PAIN [facility] INC R65464 ENCOUNTER 02-05-2017 [facility] FOR OTHER MEM [facility] PREPROCEDUR INC AL EXAMINATION R079 CHEST PAIN 01-29-2017 [facility] UNSPECIFIED COMMUNTIY HOSPITA 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 N GROUP R5383 OTHER 01-22-2017 [facility] FATIGUE PHYSICIANS GROUP N529 MALE 01-15-2017 [facility] ERECTILE FAMILY DYSFUNCTION PRACTICE UNSPECIFIED R51 HEADACHE 01-05-2017 [facility] P J309 ALLERGIC 01-01-2017 [facility] RHINITIS FAMILY UNSPECIFIED PRACTICE J209 ACUTE 12-07-2016 [facility] BRONCHITIS [facility] UNSPECIFIED INC V5481 AFTERCARE 01-01-2012 [facility] JOINT [facility]OCIA REPLACEMENT 2689 UNSPECIFIED 12-03-2011 [facility] VITAMIN [facility] DEFICIENCY HOSP 63555 MORBID 12-03-2011 [facility]ITY [facility] 2851 ACUTE 12-03-2011 [facility] POSTHEMORRH [facility] AGIC ANEMIA HOSP 17650 OBSTRUCTIVE 12-03-2011 [facility] SLEEP [facility] APNEA [facility]OSP 90588 OTHER ACUTE 12-03-2011 [facility] [place] ANESTHESIA POSTOPERATI VE PAIN 05728 PRIMARY 12-03-2011 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 78498 LOC 12-03-2011 [facility] OSTEOARTHRO [facility] S NOT SPEC HOSP PRIM/SEC LOWER LEG 17937 PAIN IN 12-03-2011 [facility] [place] JOINT, ANESTHESIA LOWER LEG 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 UNSPEC 96168 HYPOXEMIA 12-03-2011 [facility] V8543 BODY MASS 12-03-2011 [facility] INDEX [facility] 50.0-59.9 HOSP ADULT 34754 UNSPECIFIED 12-21-2008 DANIEL DISEASE OF JOHAN Ortiz PHARYNX 29669 UNSPECIFIED 12-21-2008 DANIEL SLEEP JOHAN G APNEA 44327 DYSPHAGIA 12-21-2008 DANIEL UNSPECIFIED JOHAN G 13263 OBESITY, 12-09-2008 [facility] UNSPECIFIED HEALTHCARE CENTER 7823 EDEMA 12-09-2008 [facility] HEALTHCARE CENTER 63896 OTHER 12-09-2008 [facility] ABNORMAL HEALTHCARE GLUCOSE CENTER 95392 DIAB W/O 12-02-2008 M E D MENTION SUPPLIES COMP TYPE II/UNS TYPE UNCNTRL 5110 PLEURISY 12-01-2008 [facility] WITHOUT HEALTHCARE MENTION CENTER EFFUS/[place] [address] CHEST PAIN 11-30-2008 [facility] UNSPECIFIED N EMERGENCY PHYS INC 84271 PRECORDIAL 11-28-2008 [employer] 53604 OTHER CHEST 11-28-2008 [facility] PROF SERV 4019 UNSPECIFIED 11-26-2008 [facility] ESSENTIAL HEALTHCARE HYPERTENSIO CENTER N 77314 ESOPHAGEAL 11-26-2008 [facility] REFLUX HEALTHCARE CENTER 76821 HYPERSOMNIA 11-22-2008 DANIEL WITH SLEEP JOHAN G APNEA UNSPECIFIED 2859 UNSPECIFIED 11-18-2008 [facility] 68634 OTHER 11-18-[address] [facility] PULMONARY [facility] CY NEC 52813 REFLUX 11-18-2008 PATHOLOGY & ESOPHAGITIS CYTOLOGY LAB 79212 OTHER 11-18-2008 [facility] STOMACH AND DUODENUM 5693 HEMORRHAGE 11-18-2008 [place] OF RECTUM ANESTHESIA AND ANUS GROUP [facility] 69349 DIARRHEA 11-18-2008 [facility] 73870 HYPERTROPHY 11-15-2008 DANIEL OF TONSILS JOHAN Ortiz TRAVIS 05834 SHORTNESS 11-05-2008 [facility] [place] OF BREATH RADIOLOGY 46482 WHEEZING 11-05-2008 [facility] 50924 POLYURIA 11-04-2008 [facility] 7915 GLYCOSURIA 11-03-2008 [facility] Medications Na ND Rx Da Fi Fi [...] 4- 2- 00 RS 48 EY ve FL 00 20 20 N 80 09 09 PH GI HC 5 AR NA L MA 50 CY 0 MG TA BL ET FU 00 03 03 00 30 30 BA 24 DA Ac RO 17 -0 -1 .0 KE 52 BN ti SE 22 4- 2- 00 RS 50 EY ve FL 90 20 20 DE 78 09 09 PH GI 0 AR NA 40 MA CY MG TA BL ET IN 00 02 03 00 6. 15 BA [...] Procedure DOS Code Location Performer Comment SIMPLE 70547 [facility] REPAIR 7 ROSI SCALP/NEC EMERGENCY K/AX/SUZI SERV T/TRUNK 2.5CM/< COLLECTIO 94066 [facility] N VENOUS 7 [facility] BLOOD INC INC VENIPUNCT URE ORGANIC 23463 [facility] ACID 1 7 [facility] [place] [address] [facility] PARATHORM 7 [facility] [place] [address] [facility] PHOSPHORU 7 [facility] [place] [address] [facility] D[facility] THIAMINE- 7 [facility] VITAMIN INC INC B-1 LIPID 68038 [facility] PANEL 7 [facility] INC INC HEMOGLOBI 54636 [facility] D[facility] N 7 MEM HOS[facility] GLYCOSYLA INC INC SONAL A1C PREALBUMI 37152 [facility] D[facility] N 7 [facility] INC INC BLOOD 20500 [facility] COUNT 7 [facility] COMPLETE INC INC AUTO&[place] [address] ZACK D[facility] VITAMIN A 7 MEM HOS[facility] INC INC COMPREHEN 06114 [facility] SIVE 7 [facility] [address] [facility] FOLIC 7 [facility] [place] [address] [facility] IRON 7 [place] [address] [facility] D[facility] THYROID 7 [facility] STIMULATI INC INC NG HORMONE TSH DRUG TEST G0480 [facility] DEFINITV [address] ID INC INC METH P DAY 1-7 DRUG CL 25 99502 [facility] HYDROXY 7 [facility] INCLUDES [place] [address] [facility] FERRITIN 7 [place] [address] [facility] D[facility] MAGNESIUM 7 [facility] INC INC HST G0399 [facility] W/TYPE 7 [facility] III INC INC PRTBLE MON UNATTENDE D MIN 4 CH ECG 10639 [facility] ROUTINE 7 [facility] ECG INC INC W/LEAST 12 LDS TRCG ONLY W/O I&R ECG 61694 [facility] ROUTINE 7 PHYSICIAN ECG S GROUP W/LEAST 12 LDS I&R ONLY TECHNETIU A9502 [facility] TC-99M 7 N N TETROFOSM COMMUNTIY COMMUNTIY IN DX PER HOSPITA HOSPITA STUDY DOSE CV STRS 32121 [facility] TST 7 N N XERS&/OR COMMUNTIY COMMUNTIY RX CONT HOSPITA HOSPITA ECG TRCG ONLY CV STRS 34709 [facility] TST 7 N XERS&/OR CARDIOLOG RX CONT Y ECG W/O I&R MYOCARDIA 65819 [facility] L SPECT 7 N MULTIPLE CARDIOLOG STUDIES Y ECHO 03447 [facility] ESTHER TTHRC R-T 7 N 2D CARDIOLOG W/WOM-MOD Y E COMPL SPEC&COLR D CV STRS 78971 GLENIS SANTANA TST 7 N XERS&/OR CARDIOLOG RX CONT Y ECG I&[place] [address] [facility] [address] THYROID [address] [facility] STIMULATI [place] [address] [facility] D[facility] THYROXINE 7 [facility] TOTAL INC INC ECG 84389 [facility] ROUTINE 7 [facility] ECG INC INC W/LEAST 12 LDS TRCG ONLY W/O I&R ECG 28832 [facility] JANNETH ROUTINE 7 PHYSICIAN ECG S GROUP W/LEAST 12 LDS I&R ONLY THERAPEUT 12402 OMARAMANDA KHAN IC 7 N FAMILY PROPHYLAC PRACTICE TIC/DX INJECTION SUBQ/IM CREATINE 04520 [facility] KINASE [address] [facility] TOTAL INC INC THER 07206 [facility] PROPH/DX 7 [facility] NJX IV INC INC PUSH SINGLE/1S T SBST/DRUG ECG 84424 [facility] ROUTINE 7 [facility] ECG INC INC W/LEAST 12 LDS TRCG ONLY W/O I&[place] [address] [facility] TROPONIN [address] [facility] QUANTITAT INC INC ANISH LIPID 25539 [facility] D[facility] PANEL [address] [facility] INC INC BLOOD 28909 [facility] COUNT [facility] COMPLETE INC INC AUTO&AUTO DIFRNTL WBC RADIOLOGI 77391 [facility] C EXAM [facility] CHEST 2 INC INC VIEWS FRONTAL&L ATERAL THERAPEUT 47981 [facility] IC [address] [facility] INJECTION INC INC IV PUSH EACH NEW DRUG ECG 94171 ZACK RICH JR ROUTINE 7 [facility] HOSPITAL W/LEAST P 12 LDS I&R ONLY COLLECTIO 76872 [facility] N VENOUS [address] [facility] BLOOD INC INC VENIPUNCT URE COMPREHEN 68439 [facility] D[facility] SIVE [address] [facility]P METABOLIC INC INC PANEL CREATINE 84154 [facility] KINASE MB 7 [facility] H[facility] FRACTION INC INC ONLY INJ J0702 [facility] [place] BETAMETHA 7 N FAMILY JR SONE PRACTICE ACETATE & PHOSPHATE 3 MG THERAPEUT 22909 [facility] RISHI IC 7 N FAMILY JR PROPHYLAC PRACTICE TIC/DX INJECTION SUBQ/IM HOSPITAL G0463 [facility] OUTPATIEN 7 [facility] T CLIN INC INC VISIT ASSESS & MGMT PT IAADIADOO 92754 [facility] D[facility] 7 MEM H[facility] MEM [facility]OS[facility] STREPTOCO INC INC CCUS GROUP A IAADIADOO 94970 [facility] D[facility] 7 MEM H[facility] MEM [facility]OS[facility] INFLUENZA INC INC THERAPEUT 41259 [facility] ERIN IC 7 N FAMILY PROPHYLAC PRACTICE TIC/DX INJECTION SUBQ/IM RADIOLOGI 33407 ADAL VANCE AND Erik 2 EXAMINATI ORTHOPEDI ON KNEE C ASSOCIA 1/2 VIEWS ANESTH 23769 [facility] OPEN/SURG 2 [place] MORE ARTHRS ANESTHESI TOTAL A KNEE ARTHROPLA STY 87017 [facility] GUIDANCE 2 [place] MORE NEEDLE ANESTHESI PLACEMENT A IMG S&I ARTHRP 29690 ADAL VANCE AND HALLEY 2 CONDYLE&P ORTHOPEDI LATU C ASSOCIA MEDIAL&LA T COMPARTME NTS INJECTION 90963 [facility] 2 [place] MORE ANESTHETI ANESTHESI C AGENT A FEMORAL NERVE SINGLE TOTAL 8154 [facility] KNEE 2 [facility] HOSP NT LARYNGOSC 58599 DANIEL SANCHEZ, MAURO 9 JOHAN Ortiz FLEXIBLE [...] INC USED W/POS ARWAY PRESSURE DEVICE ECG 72310 NORBERT GROVER, ROUTINE 9 ROSI KIMBERLY L ECG EMERGENCY W/LEAST PHYS INC 12 LDS I&R ONLY RADIOLOGI 93985 [facility] LETICIA OTTO, C EXAM 9 RADIOLOGY DAVID G CHEST 2 VIEWS FRONTAL&L ATERAL RHYTHM 82222 [facility] ECG 1-3 9 [facility] LEADS INC INC TRACING ONLY W/O I&R ECG 63974 [facility] MTZMIE ROUTINE 9 [facility] W/LEAST PROF SERV 12 LDS I&[place] [address] [facility] DIX[facility] LIPASE 9 [facility] INC INC ECG 04904 [facility] ROUTINE 9 [facility] ECG INC INC W/LEAST 12 LDS TRCG ONLY W/O I&R CREATINE 18075 [facility] KINASE 9 [facility] TOTAL INC INC HEMOGLOBI 12377 [facility] D[facility] N 9 [facility] MEM [facility] GLYCOSYLA [place] [address] [facility] D[facility] TROPONIN 9 MEM H[facility]OS[facility] QUANTITAT INC INC ANISH BLOOD 42074 [facility] COUNT 9 [facility] COMPLETE INC INC AUTO&AUTO DIFRNTL WBC RADIOLOGI 97594 [facility] D[facility] C 9 [facility] H[facility] EXAMINATI INC INC [place] [address] ZACK DIOXN AMYLASE 9 [facility] INC INC CREATINE 67546 [facility] D[facility] KINASE MB 9 MEM H[facility] FRACTION INC INC ONLY COMPREHEN 53793 ZACK ZACK SIVE 9 [facility] HOSP [facility] METABOLIC INC INC PANEL NONINVASI 64689 [facility] [place] 9 [facility] SHASHANK EAR/PULSE E CENTER OXIMETRY SINGLE DETER POLYSOM 59651 DANIEL SANCHEZ, 6/>YRS 9 JOHAN Ortiz SLEEP 4/> ADDL JAMAAL ATTND GLUC BLD 60125 [facility] GLUC MNTR 9 N N DEV [facility] FDA SPEC HOME USE UNLISTED 38364 [facility] ANESTHESI 9 N N A [facility] SPCL STN 69211 PATHOLOGY PATHOLOGY 2 I&R 9 & & EXCPT CYTOLOGY CYTOLOGY MICROORG/ LAB LAB ENZYME/IM CYT EGD 31739 MCCLURE- REN- TRANSORAL 9 ANITA, ANITA, BIOPSY POWER STEVE SINGLE/MU LTIPLE COLONOSCO 45874 MCCLUREMIKE MCCLURE- PY 9 ANITA, ANITA, W/BIOPSY POWER STEVE SINGLE/[place] [address] PATHOLOGY PATHOLOGY SURG 9 & & PATHOLOGY CYTOLOGY CYTOLOGY LAB LAB GROSS&JOANNE ROSCOPIC EXAM RADIOLOGI 18016 [facility] Erik WALDEN 9 RADIOLOGY J EXAMINATI ON CHEST SINGLE VIEW FRONTAL UNCLASSIF J3490 [facility] IED DRUGS 9 N N [facility] ANES 99926 [place] DEPA, UPPER GI 9 ANESTHESI CHATA ENDOSCOPY A GROUP PROXIMAL PSC TO DUODENUM LARYNGOSC 77609 DANIEL SANCHEZ OPY 9 JOHAN Ortiz FLEXIBLE DIAGNOSTI C RADIOLOGI 63298 [facility] Erik VASQUES EXAM 9 RADIOLOGY DAVID G CHEST 2 VIEWS FRONTAL&L ATERAL LIPID 66464 [facility] PANEL 9 [facility] HOLDING GENERAL 90397 [facility] 9 AMERIC AMERIC PANEL HOLDING HOLDING COLLECTIO 98120 CASSANDRA DOMÍNGUEZ, N VENOUS 9 [facility] SHASHANK BLOOD E CENTER VENIPUNCT URE HEMOGLOBI 46694 [facility]STOP[facility] N 9 AMERIC JACEK GLYCOSYLA HOLDING HOLDING SONAL A1C URNLS DIP 36745 CASSANDRA DOMÍNGUEZ, [address] SHASHANK STICK/TAB E CENTER LET RGNT AUTO W/O MICROSCOP Y Encounters Encounter Start End Date Code Location Performer Type Date OFFICE 31910 [facility] MARÍA ELENA OUTPATIEN 7 7 PHYSICIAN T VISIT 5 S GROUP MINUTES [facility] - 7 7 N [facility]PATI[facility] 26256 [facility] 7 7 N DEPARTMEN COMMUNTIY T [facility] HIGH/URGE NT SEVERITY EMERGENCY 86397 [facility] 7 7 ROSI DEPARTMEN EMERGENCY T VISIT SERV MODERATE SEVERITY [facility] ZACK - OTHER 7 7 MEM HOSP INC OFFICE 49860 [facility] MARÍA ELENA OUTPATIEN 7 7 PHYSICIAN T VISIT S GROUP 15 MINUTES HOSPITAL [facility] - 7 7 MEM H[facility] OUTPATIEN [facility] ZACK - 7 7 MEM [facility] OUTPATIEN [facility] OFFICE 29247 [facility] JANNETH OUTPATIEN 7 7 PHYSICIAN T VISIT S GROUP 25 MINUTES [facility]OSPITAL [facility] - 7 7 N OUTPATIEN COMMUNTIY T [facility] ZACK - OTHER 7 7 MEM HOSP INC OFFICE 75640 [facility] MARÍA ELENA OUTPATIEN 7 7 PHYSICIAN T VISIT S GROUP 15 MINUTES OFFICE 85685 [facility] JANNETH OUTPATIEN 7 7 PHYSICIAN T NEW 60 S GROUP [facility] ZACK - 7 7 MEM HOSP OUTPATIEN [facility] HOSPITAL ZACK - 7 7 MEM HOSP OUTPATIEN INC T EMERGENCY 21438 Z[facility] 7 7 MEM HOSP DEPARTMEN INC T VISIT HIGH/URGE NT SEVERITY EMERGENCY 70782 L[facility] SENRIQUE [facility] DEPT 7 7 PHYSICIAN VISIT S, [facility] HIGH SEVERITY& THREAT FUNCJ OFFICE 57977 [facility] OUTPATIEN 7 7 N FAMILY JR T VISIT PRACTICE 15 MINUTES HOSPITAL [facility] - 7 7 [facility] OUTPATIEN INC T HOSPITAL [facility] - 2 2 [facility] OFFICE 79482 DANIEL SANCHEZ OUTPATIEN 9 9 JOHAN Ortiz T VISIT 25 MINUTES OFFICE 57055 [facility] [place] 9 9 [facility] SHASHANK T VISIT E CENTER 15 MINUTES OFFICE 66769 [facility] [place] 9 9 [facility] SHASHANK T VISIT E CENTER 15 MINUTES EMERGENCY 73565 NORBERT GROVER, DEPT 9 9 ROSI Dorantes VISIT EMERGENCY HIGH PHYS INC SEVERITY& THREAT FUNJ OFFICE 08516 DANIEL SANCHEZ OUTPATIEN 9 9 JOHAN Ortiz T VISIT 15 MINUTES EMERGENCY 26484 KARMEN RING, DEPT 9 9 [facility] S VISIT CORPORATI HIGH ON SEVERITY& THREAT [facility] ZACK - 9 9 MEM HOSP OUTPATIEN INC T EMERGENCY 42477 ZACK 9 9 [facility] DEPARTMEN INC T VISIT HIGH/URGE NT SEVERITY OFFICE 13585 [facility] [place] 9 9 [facility] SH[facility]ANK T VISIT E CENTER 25 MINUTES HOSPITAL [facility] - 9 9 N OUTPATIEN [facility] - 9 9 N OUTPATIEN [facility] OFFICE 51945 DANIEL SANCHEZ CONSULTAT 9 9 JOHAN MARAVILLA NEW/ESTAB PATIENT 60 MIN OFFICE 63895 [facility] [place], OUTTRISTAR [facility] 9 9 [facility] VISIT [facility] 15 MINUTES [facility] [place] [address] 9 N [facility]
--- OUTSIDE RECORDS SUMMARY | 2017-04-30 12:55 | External Medical Summary Rpt ---
Demographics Preferred Language [place] Islander Marital Status Unknown Sabianism Affiliation Unknown Race Unknown Ethnic Group Unknown Author Author , GERMAN NELSON Address Unknown Phone Immunization Unable to retrieve immunization data due to connection failure with Immunization Registry. Please try again later.
--- OUTSIDE RECORDS SUMMARY | 2017-04-30 12:55 | External Medical Summary Rpt ---
Demographics Preferred Language Sierra Leonean Marital Status Unknown Alevism Affiliation Unknown Race Unknown Ethnic Group Unknown Author Author , GERMAN NELSON Address Unknown Phone Immunization Unable to retrieve immunization data due to connection failure with Immunization Registry. Please try again later.
--- OUTSIDE RECORDS SUMMARY | 2017-04-30 12:56 | External Medical Summary Rpt ---
Author Author [employer], [employer] Organization [employer] Address Unknown Phone Unavailable Results Folate [Mass/volume] in Serum or Plasma Observa Value Referen Units Interpr Notes Date tion ce etation Range Folate >3.0 ng/mL No A serum February 19 [Mass/vol informati folate 2017 2:26 ume] in on in concentra PM Serum or source tion of Plasma data less than 3.1 ng/mL isconside red to represent clinical deficienc y.Perform ed at: CB - [facility] [id number] [place], [place] [id number] Photographer Finish: Virgilio Gottlieb PhD, Phone: [phone] Methylmalonate [Moles/volume] in Serum or Plasma Observa Value Referen Units Interpr Notes Date tion ce etation Range Methylmal 0 - 378 nmol/L No Performed February 19 aileen informati at: BN 2016 2:26 [Moles/vo on in - [facility] PM lume] in source Serum or data [facility] Plasma [address] [place], [place] [id number] Photographer Finish: Carlos Perez MD, Phone: [phone] Prealbumin [Mass/volume] in Serum or Plasma Observa Value Referen Units Interpr Notes Date tion ce etation Range Prealbumi 14 - 35 mg/dL No Performed February 19 n informati at: CB 2017 2:26 [Mass/vol on in - [facility] PM ume] in source Serum or data [id number] Plasma 0 [place], [place] [id number] Photographer Finish: Virgilio Gottlieb PhD, Phone: [phone] Thiamine [Moles/volume] in Blood Observa Value Referen Units Interpr Notes Date tion ce etation Range Thiamine 66.5 - nmol/L No Performed February 19 [Moles/vo 200.0 informati at: BN 2017 2:26 lume] in on in - [facility] PM Blood source data [place] [id number] [place] [id number] Photographer Finish: Carlos Perez MD, Phone: [phone] Nicotine and Metabolite, Ur Qn Observa Value Referen Units Interpr Notes Date tion ce etation Range Nicotine . ng/mL No Results February 19 [Mass/vol informati confirmed 2016 2:26 ume] in on in PM Urine source ondilutio data n.Nicotin e levels greater than 100.0 are consisten t with theuse of tobacco or tobacco cessation products. Cotinine . ng/mL No Results February 19 [Mass/vol informati confirmed 2016 2:26 ume] in on in PM Urine source ondilutio data n.Cotinin e levels greater than 200.0 are consisten t with theuse of tobacco or tobacco cessation products. Performed at: - [facility] [id number] [place], [place] [id number] Photographer Finish: Carlos Perez MD, Phone: [phone] 25-Hydroxyvitamin D [Mass/volume] in Serum or Plasma Observa Value Referen Units Interpr Notes Date tion ce etation Range 25-Hydrox 30.0 - ng/mL No Vitamin D February 19 yvitamin 100.0 informati 2017 2:26 D on in deficienc PM [Mass/vol source y has ume] in data been Serum or defined Plasma by the [facility] e and an Endocrine Society practice guideline as alevel of serum 25-OH vitamin D less than 20 ng/mL (1,2).The Endocrine Society went on to further define vitamin Dinsuffic iency as a level between 21 and 29 ng/mL (2).1. IOM (Institut e of Medicine) . 2010. Dietary reference intakes for calcium and D. [place]: TheNation al Academies Press.2. Jacinda MF, [place], Ashley Mora PEÑA, et al.Evalua tion, treatment , and preventio n of vitamin Ddeficien cy: an Endocrine Society clinical practiceg uideline. JCEM. 2010; 96(7):191 1-30.[facility] [id number] Photographer Finish: Virgilio Gottlieb PhD, Phone: [phone] Retinol [Mass/volume] in Serum or Plasma Observa Value Referen Units Interpr Notes Date tion ce etation Range Retinol 24 - 85 ug/dL No Performed February 19 [Mass/vol informati at: BN 2017 2:26 ume] in on in - [facility] PM Serum or source Plasma data [facility] [address] [place], [place] [id number] Photographer Finish: Carlos Perez MD, Phone: [phone] Alpha tocopherol [Mass/volume] in Serum or Plasma Observa Value Referen Units Interpr Notes Date tion ce etation Range Alpha 5.3 - mg/L No No February 19 tocophero 17.5 informati informati 2016 2:26 l on in on in PM [Mass/vol source source ume] in data data Serum or Plasma Comprehensive metabolic 2000 panel in Serum or Plasma Observa Value Referen Units Interpr Notes Date ti ce etation Range Albumin/G 1.1 - 1.8 No Normal No February 19 lobulin informati informati 2016 2:26 [Mass on in on in PM ratio] in source source Serum or data data Plasma Albumin 3.4 - 5.0 gm/dL Normal No February 19 [Mass/vol informati 2016 2:26 ume] in on in PM Serum or source Plasma data Alkaline 46 - 116 U/L Normal No February 19 phosphata informati 2016 2:26 se on in PM [Enzymati source c data activity/ volume] in Serum or Plasma Bilirubin 0.2 - 1.0 mg/dL Normal No February 19 .total informati 2016 2:26 [Mass/vol on in PM ume] in source Serum or data Plasma Urea 7 - 18 mg/dL High No February 19 nitrogen informati 2016 2:26 [Mass/vol on in PM ume] in source Serum or data Plasma Calcium 8.5 - mg/dL Normal No February 19 [Mass/vol 10.1 informati 2016 2:26 ume] in on in PM Serum or source Plasma data Chloride 98 - 107 mmoL/L Normal No February 19 [Moles/vo informati 2016 2:26 lume] in on in PM Serum or source Plasma data Carbon 21.0 - mmoL/L Normal No February 19 dioxide, 32.0 informati 2017 2:26 total on in PM [Moles/vo source lume] in data Serum or Plasma Creatinin 0.70 - mg/dL Normal No February 19 e 1.30 informati 2016 2:26 [Mass/vol on in PM ume] in source Serum or data Plasma Estimated >60 ML/MIN No REFERENCE February 19 informati RANGE: 2017 2:26 glomerula on in >60 PM r source ML/MIN/1. filtratio data 73 SQUARE n rate METERSIf (GF this patient is -A merican, then multiply theresult by 1.210. Globulin 1.3 - 3.2 gm/dL Normal No February 19 [Mass/vol informati 2016 2:26 ume] in on in PM Serum source data Glucose 74 - 106 mg/dL High No February 19 [Mass/vol informati 2016 2:26 ume] in on in PM Serum or source Plasma data Potassium 3.5 - 5.1 mmoL/L Normal No February 19 inform2016 2:26 [Moles/vo on in PM lume] in source Serum or data Plasma Sodium 136 - 145 mmoL/L Normal No February 19 [Moles/vo informati 2016 2:26 lume] in on in PM Serum or source Plasma data Aspartate 15 - 37 U/L Low No February 19 informati 2016 2:26 aminotran on in PM sferase source [Enzymati data c activity/ volume] in Serum or Plasma Alanine 12 - 78 U/L Normal No February 19 aminotran informati 2016 2:26 sferase on in PM [Enzymati source c data activity/ volume] in Serum or Plasma Protein 6.4 - 8.2 gm/dL Normal No February 19 [Mass/vol informati 2016 2:26 ume] in on in PM Serum or source Plasma data Iron [Mass/mass] in Unspecified specimen Observa Value Referen Units Interpr Notes Date tion ce etation Range Iron 65 - 175 ug/dL Normal No February 19 [Mass/mas informati 2016 2:26 s] in on in PM Unspecifi source ed data specimen Ferritin [Mass/volume] in Serum or Plasma Observa Value Referen Units Interpr Notes Date tion ce etation Range Ferritin 8 - 388 ng/mL Normal No February 19 [Mass/vol informati 2016 2:26 ume] in on in PM Serum or source Plasma data Lipid 1996 panel in Serum or Plasma Observa Value Referen Units Interpr Notes Date tion ce etation Range Cholester < 200 mg/dL No No February 19 ol informati informati 2016 2:26 [Moles/vo on in on in PM lume] in source source Unspecifi data data ed specimen Cholester 40 - 60 MG/DL Low No February 19 ol in HDL inform2016 2:26 on in PM [Mass/vol source ume] in data Serum or Plasma Cholester 0 - 130 mg/dL Normal No February 19 ol in LDL informati 2016 2:26 on in PM [Mass/vol source ume] in data Serum or Plasma by calculati on Triglycer 30 - 200 mg/dL Normal No February 19 janel informati 2016 2:26 [Moles/vo on in PM lume] in source Serum or data Plasma Cholester 0 - 40 No Normal No February 19 ol in informati informati 2016 2:26 VLDL on in on in PM [Mass/vol source source ume] in data data Serum or Plasma Magnesium [Moles/volume] in Unspecified specimen Observa Value Referen Units Interpr Notes Date tion ce etation Range Magnesium 1.4 - 2.2 mg/dL Normal No February 19 inform2016 2:26 [Moles/vo on in PM lume] in source Unspecifi data ed specimen Phosphate [Moles/volume] in Unspecified specimen Observa Value Referen Units Interpr Notes Date tion ce etation Range Phosphate 2.4 - 4.9 mg/dL High No February 19 inform2016 2:26 [Moles/vo on in PM lume] in source Unspecifi data ed specimen Parathyrin.intact [Mass/volume] in Serum or Plasma Observa Value Referen Units Interpr Notes Date tion ce etation Range Parathyri 15 - 65 pg/mL No Performed February 19 n.intact informati at: CB 2017 2:26 [Mass/vol on in - [facility] PM ume] in source Serum or data [place] [address] Plasma 0 [place], [place] [id number] Photographer Finish: Virgilio Gottlieb PhD, Phone: [phone] Thyrotropin [Units/volume] in Serum or Plasma Observa Value Referen Units Interpr Notes Date tion ce etation Range Thyrotrop 0.358 - uIU/ml Normal No February 19 in 3.740 informati 2017 2:26 [Units/vo on in PM lume] in source Serum or data Plasma Hemoglobin A1c in Blood Observa Value Referen Units Interpr Notes Date tion ce etation Range Hemoglo 7.8 0.0 - % High < 6% February 19 bin A1c 7.0 NON-KHURRAM 2017 in LEONIDIC 2:26 PM Blood LEVEL< 7% CONTROL LED DIABETI C LEVEL> 8% POORLY CONTROL LED DIABETI C LEVEL CBC W Auto Differential panel in Blood Observa Value Referen Units Interpr Notes Date tion ce etation Range Basophils 0 - 0.2 K/MM3 Normal No February 19 informati 2016 2:26 [#/volume on in PM ] in source Blood by data Automated count Basophils 0.1 - 2.0 % Normal No February 19 informati 2016 2:26 leukocyte on in PM s in source Blood by data Automated count Eosinophi 0.0 - 0.4 K/mm3 Normal No February 19 ls informati 2016 2:26 [#/volume on in PM ] in source Blood by data Automated count Eosinophi 0.1 - % Normal No February 19 ls/100 12.0 informati 2016 2:26 leukocyte on in PM s in source Blood by data Automated count Granulocy 1.3 - 8.0 K/mm3 Normal No February 19 val informati 2016 2:26 [#/volume on in PM ] in source Blood by data Automated count Granulocy 37.0 - % Normal No February 19 val/100 80.0 informati 2016 2:26 leukocyte on in PM s in source Blood by data Automated count Hematocri 42.0 - % Normal No February 19 t [Volume 52.0 informati 2016 2:26 on in PM Fraction] source of Blood data Hemoglobi 14.1 - g/dL Normal No February 19 n 18.0 informati 2016 2:26 [Mass/vol on in PM ume] in source Blood data Lymphocyt 0.7 - 4.5 K/mm3 Normal No February 19 es informati 2016 2:26 [#/volume on in PM ] in source Unspecifi data ed specimen by Automated count Lymphocyt 10 - 50 % Normal No February 19 es informati 2016 2:26 [#/volume on in PM ] in source Unspecifi data ed specimen by Automated count Erythrocy 27 - 31.2 pg High No February 19 te mean informati 2017 2:26 corpuscul on in PM ar source hemoglobi data n [Entitic mass] Erythrocy 31.8 - g/dl Normal No February 19 te mean 35.4 informati 2016 2:26 corpuscul on in PM ar source hemoglobi data n concentra tion [Mass/vol ume] by Automated count Erythrocy 82.2 - fl High No February 19 te mean 97.8 informati 2016 2:26 corpuscul on in PM ar volume source [Entitic data volume] by Automated count Monocytes 0.1 - 1.0 K/mm3 Normal No February 19 informati 2016 2:26 [#/volume on in PM ] in source Blood by data Automated count Monocytes 1.7 - 9.3 % Normal No February 19 / informati 2017 2:26 leukocyte on in PM s in source Blood by data Automated count Platelet 7.4 - fl Low No February 19 mean 10.4 informati 2016 2:26 volume on in PM [Entitic source volume] data in Blood by Automated count Platelets 142 - 424 K/mm3 Normal No February 19 informati 2017 2:26 [#/volume on in PM ] in source Blood data Erythrocy 4.6 - 6.2 M/mm3 Normal No February 19 val informati 2017 2:26 [#/volume on in PM ] in source Amniotic data fluid Erythrocy 11.5 - % Normal No February 19 te 17.5 informati 2016 2:26 distribut on in PM ion width source [Entitic data volume] by Automated count Leukocyte 4.8 - K/MM3 Normal No February 19 s 10.8 informati 2016 2:26 [#/volume on in PM ] in source Blood data
--- OUTSIDE RECORDS SUMMARY | 2017-04-30 12:56 | External Medical Summary Rpt ---
[...] deficienc y.Perform ed at: CB - [facility] [id number] [place], [place] [id number] [employer] Finishing Hand: Virgilio Gottlieb PhD, Phone: [phone] Methylmalonate [Moles/volume] in Serum or Plasma Observa Value Referen Units Interpr Notes Date tion ce etation Range Methylmal 0 - 378 nmol/L No Performed February 19 aileen informati at: BN 2016 2:26 [Moles/vo on in - [facility] PM lume] in source Serum or data [facility] Plasma [address] [place], [place] [id number] [employer] Finishing Hand: Carlos Perez MD, Phone: [phone] Prealbumin [Mass/volume] in Serum or Plasma Observa Value Referen Units Interpr Notes Date tion ce etation Range Prealbumi 14 - 35 mg/dL No Performed February 19 n informati at: CB 2017 2:26 [Mass/vol on in - [facility] PM ume] in source Serum or data [id number] Plasma [address] [place], [place] [id number] [employer] Finishing Hand: Virgilio Gottlieb PhD, Phone: [phone] Thiamine [Moles/volume] in Blood Observa Value Referen Units Interpr Notes Date tion ce etation Range Thiamine 66.5 - nmol/L No Performed February 19 [Moles/vo 200.0 informati at: BN 2017 2:26 lume] in on in - [facility] PM Blood source data [place] [id number] [place] [id number] [employer] Finishing Hand: Carlos Perez MD, Phone: [phone] Nicotine and Metabolite, Ur Qn Observa [...] or tobacco cessation products. Performed at: - [facility] [id number] [place], [place] [id number] [employer] Finishing Hand: Carlos Perez MD, Phone: [phone] 25-Hydroxyvitamin D [Mass/volume] in Serum or Plasma Observa Value Referen Units Interpr Notes Date tion ce etation Range 25-Hydrox 30.0 - ng/mL No Vitamin D February 19 yvitamin 100.0 informati 2017 2:26 D on in deficienc PM [Mass/vol source y has ume] in data been Serum or defined Plasma by the [facility] e and an Endocrine Society practice guideline [...] uideline. JCEM. 2010; 96(7):191 1-30.[facility] [id number] [employer] Finishing Hand: Virgilio Gottlieb PhD, Phone: [phone] Retinol [Mass/volume] in Serum or Plasma Observa Value Referen Units Interpr Notes Date tion ce etation Range Retinol 24 - 85 ug/dL No Performed February 19 [Mass/vol informati at: BN 2017 2:26 ume] in on in - [facility] PM Serum or source Plasma data [facility] [address] [place], [place] [id number] [employer] Finishing Hand: Carlos Perez MD, Phone: [phone] Alpha tocopherol [Mass/volume] in Serum or [...] PM ume] in source Serum or data [place] [address] [address] 0 [place], [place] [id number] [employer] Finishing Hand: Virgilio Gottlieb PhD, Phone: [phone] Thyrotropin [Units/volume] in Serum or Plasma [...]
--- NOTE | 2017-04-30 13:12 | Urgent Treatment Center Report ---
History of Present Issue Date/Time Seen by Provider 04/30/17 1258 Visit Reason Pt arrived:Walked Presenting Problem:PT STATES FALLING THROUGH [employer] FLOOR TWO NIGHTS AGO AND INJURING LEFT KNEE. STATES PREVIOUS KNEE REPLACEMENT. DENIES TREATMENT PRIOR TO ARRIVAL. ALSO STATES HANDS HAVE BEEN PEELING FOR THREE MONTHS. STATES PAIN TO TOUCH Location if Accident: Onset of symptoms date/time:/ or onset unknown for:MEDICAL HX UNKNOWN Have you (or family members/close friends) recently traveled outside the [place]? N If Yes, where/when: Have you had exposure to infectious disease within the past month? TB? Other? Specify: Patient states that he was working on replacing floor in [employer] [facility] a couple of nights ago when he fell through the floor and hit his left knee in which he has had 2 prior knee replacements States that he has been having pain in the knee area ever since. States that he also noticed small area of bruising on the knee and also he wears rubber gloves at work and sweats alot in the gloves and over the last 3 months he has noticed that the palms of his hands have started peeling and at times area very painful ALLERGIES Coded Allergies: No Known Allergies () Home Medications Reported Medications METFORMIN HCL (Metformin) 1,000 MG PO BID Glyburide (Glyburide 5MG) 5 MG PO BID #60 LISINOPRIL/HYDROCHLOROTHIAZIDE (Lisinopril-Hctz 20-12.5 MG Tab) 1 TAB PO DAILY #90 History Medical History General CAD? No Angina: No [place]: No Hypertension? Yes Hyperlipidemia? No CHF? No DVT? No PE? No COPD? No Asthma? No Anemia? No GERD? No Gastric ulcers? No GI Bleed? No Hernia? No Thyroid Problems? No Hypothyroidism? No CVA? No Seizures? No Diabetes? Yes Insulin Dependent: No Insulin Pump: No Home FSBS? No Renal Insuffiency? No UTI? No Stones? No BPH? No GB Disease: No Nephritic Syndrome? No Asplenia? No Hepatitis? No Sickle Cell Disease? No Arthritis? No Migraines? No Cataracts? No Glaucoma? No MRSA? Yes HIV? No TB? No Anxiety? No Depression? No Cancer? No More? No Immunization HX DT/Tetanus 01/30/09 Flu 2YRSorMore Pneumonia NEVER Surgical Hx Previous Surgery?Y PILIONAL CYST LT KNEE SCOPE X2 LEFT SHOUDLER LEFT KNEE REPLACEMENT X 2 I&D X 2 Family History Family HX Diabetes No CAD No Hypertension No Hyperlipidemia No Cancer No Social History Smoking Hx Smoker: Current Every Day Smoker Tobacco: Yes Type Cigarettes Packs/day < 1 Pack Alcohol Alcohol: No Review of Systems All Other Systems Reviewed and Negative Comment left knee pain after falling through the floor of [employer] [facility] and hitting knee on floor joist, hands peeling for 3 months Physical Exam Vital Signs Vital Signs Date Time Temp Pulse Resp B/P Pulse O2 O2 Flow FiO2 Ox Delivery Rate 04/30 1254 97.8 90 20 170/96 96 General Appearance normal appearance, WD/WN, no apparent distress Respiratory Status Yes: trachea midline, chest symmetrical, non tender chest. No: respiratory distress. 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 No Results/Orders Orders Procedure Date/time Status KNEE-3 VIEWS-LT 04/30 1258 Active Departure Departure Time of Disposition 1328 Disposition DC Home or Self Care(routine) Clinical Impression Primary Impression: Knee sprain Qualifiers: Encounter type: initial encounter Involved ligament of knee: unspecified ligament Laterality: left Qualified Code: S83.92XA - Sprain of unspecified site of left knee, initial encounter Condition STABLE Referrals Dhaval CARRION,Sergey Wolf (Family): 2 Days-Call Office if no improvement or worsening of symptoms MYRON OGDEN Patient Instructions DI for Knee Sprain, Knee Sprain Additional Instructions Follow up with Dr Ogden call and make appointment for evaluation of peeling of skin on the hands Follow up with family doctor Follow up with Ortho as advised for further knee pain REturn if needed Satin hands or something simular will help to keep a barrier between skin and gloves Discharge Counseling Counseled pt/family regarding diagnosis, test results, medications/RX, home care Prescriptions Current Visit Scripts Ibuprofen (Ibuprofen 800MG) 800 MG PO QIDP PRN pain #30 TAB at 3140
--- NOTE | 2017-04-30 13:12 | Urgent Treatment Center Report ---
History of Present Issue Date/Time Seen by Provider 04/30/17 1258 Visit Reason Pt arrived:Walked Presenting Problem:PT STATES FALLING THROUGH [employer] FLOOR TWO NIGHTS AGO AND INJURING LEFT KNEE. STATES PREVIOUS KNEE REPLACEMENT. DENIES TREATMENT PRIOR TO ARRIVAL. ALSO STATES HANDS HAVE BEEN PEELING FOR THREE MONTHS. STATES PAIN TO TOUCH Location if Accident: Onset of symptoms date/time:/ or onset unknown for:MEDICAL HX UNKNOWN Have you (or family members/close friends) recently traveled outside the [place]? N If Yes, where/when: Have you had exposure to infectious disease within the past month? TB? Other? Specify: Patient states that he was working on replacing floor in [facility] a couple of nights ago when he fell through the floor and hit his left knee in which he has had 2 prior knee replacements States that he has been having pain in the knee area ever since. States that he also noticed small area of bruising on the knee and also he wears rubber gloves at work and sweats alot in the gloves and over the last 3 months he has noticed that the palms of his hands have started peeling and at times area very painful ALLERGIES Coded Allergies: No Known Allergies () Home Medications Reported Medications METFORMIN HCL (Metformin) 1,000 MG PO BID Glyburide (Glyburide 5MG) 5 MG PO BID #60 LISINOPRIL/HYDROCHLOROTHIAZIDE (Lisinopril-Hctz 20-12.5 MG Tab) 1 TAB PO DAILY #90 History Medical History General CAD? No Angina: No PA: No Hypertension? Yes Hyperlipidemia? No CHF? No DVT? No PE? No COPD? No Asthma? No Anemia? No GERD? No Gastric ulcers? No GI Bleed? No Hernia? No Thyroid Problems? No Hypothyroidism? No CVA? No Seizures? No Diabetes? Yes Insulin Dependent: No Insulin Pump: No Home FSBS? No Renal Insuffiency? No UTI? No Stones? No BPH? No GB Disease: No Nephritic Syndrome? No Asplenia? No Hepatitis? No Sickle Cell Disease? No Arthritis? No Migraines? No Cataracts? No Glaucoma? No MRSA? Yes HIV? No TB? No Anxiety? No Depression? No Cancer? No More? No Immunization HX DT/Tetanus 01/30/09 Flu 2YRSorMore Pneumonia NEVER Surgical Hx Previous Surgery?Y PILIONAL CYST LT KNEE SCOPE X2 LEFT SHOUDLER LEFT KNEE REPLACEMENT X 2 I&D X 2 Family History Family HX Diabetes No CAD No Hypertension No Hyperlipidemia No Cancer No Social History Smoking Hx Smoker: Current Every Day Smoker Tobacco: Yes Type Cigarettes Packs/day < 1 Pack Alcohol Alcohol: No Review of Systems All Other Systems Reviewed and Negative Comment left knee pain after falling through the floor of [facility] and hitting knee on floor joist, hands peeling for 3 months Physical Exam Vital Signs Vital Signs Date Time Temp Pulse Resp B/P Pulse O2 O2 Flow FiO2 Ox Delivery Rate 04/30 1254 97.8 90 20 170/96 96 General Appearance normal appearance, WD/WN, no apparent distress Respiratory Status Yes: trachea midline, chest symmetrical, non tender chest. No: respiratory distress. 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 No Results/Orders Orders Procedure Date/time Status KNEE-3 VIEWS-LT 04/30 1258 Active Departure Departure Time of Disposition 1328 Disposition DC Home or Self Care(routine) Clinical Impression Primary Impression: Knee sprain Qualifiers: Encounter type: initial encounter Involved ligament of knee: unspecified ligament Laterality: left Qualified Code: S83.92XA - Sprain of unspecified site of left knee, initial encounter Condition STABLE Referrals Dhaval CARRION,Sergey Wolf (Family): 2 Days-Call Office if no improvement or worsening of symptoms MYRON OGDEN Patient Instructions DI for Knee Sprain, Knee Sprain Additional Instructions Follow up with Dr Ogden call and make appointment for evaluation of peeling of skin on the hands Follow up with family doctor Follow up with Ortho as advised for further knee pain REturn if needed Satin hands or something simular will help to keep a barrier between skin and gloves Discharge Counseling Counseled pt/family regarding diagnosis, test results, medications/RX, home care Prescriptions Current Visit Scripts Ibuprofen (Ibuprofen 800MG) 800 MG PO QIDP PRN pain #30 TAB at 3724
[2017-04-30] MEDS ORDERED: IBUPROFEN800 MG PO (13:29)
--- NOTE | 2017-04-30 13:32 | RADIOLOGY REPORT PS360 ---
KNEE-3 VIEWS-LT COMPARISON: Left knee 02/18/2013 HISTORY: Previous total knee procedure, recent fall TECHNIQUE: AP lateral and oblique views FINDINGS: The femoral prosthesis remains in good alignment and apposition to the tibial plateau prosthesis. There is no evidence of loosening. The metallic cap of the undersurface of the patella is intact and stable. There is no acute fracture and is no definite effusion. IMPRESSION: Stable total knee prosthesis left knee no acute pathology identified
[2017-04-30 13:36] VITALS: BP 170/96
== END 2017-04-30 13:36 | disposition home or self-care (01) ==
LOC: UTC 12:36
DX: S83.92XA Sprain of unspecified site of left knee, initial encounter (principal); W17.89XA Other fall from one level to another, initial encounter; Y92.009 Unspecified place in unspecified non-institutional (private) residence as the place of occurrence of the external cause

== ENCOUNTER 2017-06-15 23:25 | Emergency (ER) | payer MEDICARE, MEDICAID ==
[~2017-06-15] VITALS: Ht 185.4 cm; Wt 167.8 kg
[~2017-06-15 23:25] MED LIST changes: +IBUPROFEN800 MG PO
[2017-06-15] MEDS ORDERED: CARVEDILOL 25MG25 MG PO (23:39)
--- NOTE | 2017-06-15 23:39 | Emergency Room Report ---
History of Present Illness Time Seen by MD Mejia Presenting Problem in Triage Pt arrived:Walked Presenting Problem:C/O BACK PAIN SINCE 06/10/17 Onset of symptoms date/time:06/10/17/ or onset unknown for:MEDICAL HX UNKNOWN Treatment Prior to Arrival: ORDER DISPATCHER Provided by: Sepsis Risk Assessment: Temp: 97.9 B/P: 151/109 MAP: 123 Pulse: 81 Resp: 20 Recent fever? N Clinical Suspician of Infection? N Mental Status: 1 - Regular (Normal Baseline) Sepsis Risk:Low Sepsis Risk Have you (or family members/close friends) recently traveled outside the [place]? N If Yes, where/when: Have you had exposure to infectious disease within the past month? N TB? Other? Specify: Comment The patient complains of a back injury. He slipped on Saturday06/10/17 and has had increasingly severe back pain ever since then. He says it started out in his RIGHT lower lumbar area but is now all the way across. No radiation down the legs. No numbness or weakness of the legs. No numbness of the groin, saddle area. No loss of bowel or bladder control. He had a similar problem with his back couple of months ago but it went away and he did not see anybody about it. No other significant back problems in the past. No previous x-rays or scans of his back. He has taken BC powder without relief. Pain increases with movement, particularly twisting. He is most comfortable standing. Sitting causes him to tense up. ALLERGIES Coded Allergies: No Known Allergies () Home Medications Active Scripts Ibuprofen (Ibuprofen 800MG) 800 MG PO QIDP PRN pain #30 TAB Prov: 04/30/17 Reported Medications METFORMIN HCL (Metformin) 1,000 MG PO BID Glyburide (Glyburide 5MG) 5 MG PO BID #60 LISINOPRIL/HYDROCHLOROTHIAZIDE (Lisinopril-Hctz 20-12.5 MG Tab) 1 TAB PO DAILY #90 Carvedilol (Carvedilol 25MG) 25 MG PO BID #60 Rosuvastatin Calcium 20 MG PO DAILY #90 History Medical History General CAD? No Angina: No NC: No Hypertension? Yes Hyperlipidemia? No CHF? No DVT? No PE? No COPD? No Asthma? No Anemia? No GERD? No Gastric ulcers? No GI Bleed? No Hernia? No Thyroid Problems? No Hypothyroidism? No CVA? No Seizures? No Diabetes? Yes Insulin Dependent: No Insulin Pump: No Home FSBS? No Renal Insuffiency? No End Stage Renal Disease? No UTI? No Stones? No BPH? No GB Disease: No Nephritic Syndrome? No Asplenia? No Hepatitis? No Sickle Cell Disease? No Arthritis? No Migraines? No Cataracts? No Glaucoma? No MRSA? Yes HIV? No TB? No Anxiety? No Depression? No Cancer? No More? No Immunization Hx DT/Tetanus 01/30/09 Flu 2YRSorMore Pneumonia NEVER Surgical Hx Previous Surgery?Y PILIONAL CYST LT KNEE SCOPE X2 LEFT SHOUDLER LEFT KNEE REPLACEMENT X 2 I&D X 2 Family History Family Hx Diabetes No CAD No Hypertension No Hyperlipidemia No Cancer No Social History Smoking Hx Smoker: Never Smoker Tobacco: No Packs/day < 1 Pack Alcohol Alcohol: No Review of Systems All Other Systems Reviewed and Negative Musculoskeletal back pain Psychiatric/Neurological denies numbness, denies weakness Physical Exam Vital Signs Vital Signs Date Time Temp Pulse Resp B/P Pulse O2 O2 Flow FiO2 Ox Delivery Rate 06/16 0046 97.9 79 20 149/96 97 06/16 0045 97.9 79 20 149/96 97 06/16 0009 20 06/16 0007 20 06/15 2332 97.9 81 20 151/109 97 General Appearance moderate distress Respiratory Status No: respiratory distress. Cardiovascular regular rate/rhythm, normal peripheral pulses Back normal inspection, no CVA tenderness, no vertebral tenderness Neurologic alert, no motor/sensory deficits Reflexes Comment Attempted lower extremity reflexes. He is unable to relax enough in the seated position to perform these, tenses his muscles. Medical Decision Making LABS/Meds/Orders Pt receiving controlled substance in ED? Yes Joe was queried for this patient? Yes Comment [id number] 3 rxs. no opiates. Results/Orders Current Medication Orders Sig/Alon Start time Last Medication Dose Route Stop Time Status Admin Hydromorphone HCl 0 .STK-MED ONE 06/16 7 DC .ROUTE Ketorolac 0 .STK-MED ONE 06/16 7 DC Tromethamine .ROUTE Ondansetron HCl 0 .STK-MED ONE 06/16 7 DC .ROUTE Hydromorphone HCl 2 MG ONCE ONE 06/15 2345 DC 06/16 IM 06/15 2346 0007 Ketorolac 60 MG ONCE ONE 06/15 2345 DC 06/16 Tromethamine IM 06/15 2346 0009 Ondansetron HCl 4 MG ONCE ONE 06/15 2345 DC 06/16 IM 06/15 2346 0008 Orders Procedure Date/time Status LUMBAR SPINE 5 VIEWS 06/16 2353 Active XRAY/CT/US XRAY/CT/US XRAY L-spine Comment X-ray interpreted by Jameel Garcia MD. Negative for fracture, dislocation, or subluxation. Departure Departure Disposition DC Home or Self Care(routine) Clinical Impression Primary Impression: Lumbar spine strain Qualifiers: Encounter type: initial encounter Qualified Code: S39.012A - Strain of muscle, fascia and tendon of lower back, initial encounter Condition STABLE Referrals Dhaval CARRION,Sergey Wolf (Family) Patient Instructions DI for Low Back Pain Additional Instructions Additional instructions for BACK PAIN: See your physician as soon as possible for further evaluation. Return immediately if back pain becomes intolerable, or if fever, numbness or weakness of your legs, loss of control of your bowels or bladder. Prescriptions Current Visit Scripts OXYCODONE HCL/ACETAMINOPHEN (Percocet 5-325 MG Tablet) 1 TAB PO Q6HP PRN pain #10 TAB Ibuprofen (Ibuprofen 800MG) 800 MG PO Q8HP PRN pain #15 TAB Methocarbamol (Robaxin 750MG) 750 MG PO TIDP PRN back pain #20 TAB ED Critical Care Critical Care No at 0119
[2017-06-15] MEDS ORDERED: ROSUVASTATIN CA20 MG PO (23:40)
[2017-06-16] MEDS ORDERED: ROBAXIN-750750 MG PO (00:38)
[2017-06-16] MEDS ORDERED: IBUPROFEN800 MG PO (00:38)
[2017-06-16] MEDS ORDERED: PERCOCET1 TAB PO (00:38)
[2017-06-16 00:46] VITALS: BP 149/96
--- NOTE | 2017-06-16 12:01 | RADIOLOGY REPORT PS360 ---
LUMBAR SPINE 5 VIEWS HISTORY: slipped and hurt back twisting injury. Right-sided low back pain. Patient Age: 36 years: Male Ordering Physician: Jameel Garcia MD TECHNIQUE: Five-view lumbar spine series COMPARISON :None FINDINGS Lumbar vertebral bodies appear intact with no fracture nor subluxation.. Normal alignment The disc spaces are fairly well-maintained. Pedicles, transverse processes, SI joints unremarkable the abrupt angulation at the junction of sacrum and coccyx noted but is within spectrum of normal.. Bones well mineralized throughout. IMPRESSION: Lumbar spine intact. . No fracture nor subluxation . Normal alignment
== END 2017-06-16 00:47 | disposition home or self-care (01) ==
LOC: ER 23:25
DX: S39.012A Strain of muscle, fascia and tendon of lower back, initial encounter (principal); I10 Essential (primary) hypertension; X58.XXXA Exposure to other specified factors, initial encounter; Y92.9 Unspecified place or not applicable; Z79.84 Long term (current) use of oral hypoglycemic drugs; Z79.899 Other long term (current) drug therapy
CPT/HCPCS: J2405

== ENCOUNTER → 2017-07-03 | Outpatient (CLI) | payer MEDICARE, MEDICAID ==
[~2017-07-03] MED LIST changes: +CARVEDILOL 25MG25 MG PO; +PERCOCET1 TAB PO; +ROBAXIN-750750 MG PO; +ROSUVASTATIN CA20 MG PO
== END ==
LOC: RAD 10:19
DX: M54.2 Cervicalgia (principal); M54.5 Low back pain

== ENCOUNTER → 2017-07-10 | Outpatient (CLI) | payer MEDICARE, MEDICAID ==
--- NOTE | 2017-07-11 12:47 | RADIOLOGY REPORT PS360 ---
MRI-C-SPINE W/O, MRI-3D RENDERING/MYELOGRAM HISTORY: NECK PAIN, BACK PAIN ORDERING PHYSICIAN: Sergey Puentes MD PATIENT AGE: 37 years COMPARISON: None TECHNIQUE: Standard multiplanar multiecho sequences are performed without contrast. 3-D MIP and myelographic images are also rendered and reviewed LIMITATIONS: Patient's body habitus limits hbhput-is-boeff ratio. FINDINGS: There is normal alignment. The craniocervical junction is unremarkable. The disc spaces are preserved. No obvious disc herniation or canal stenosis. No obvious fracture. The spinal cord is grossly unremarkable IMPRESSION: Somewhat limited exam. No evidence of canal stenosis or disc herniation.
--- NOTE | 2017-07-11 12:47 | RADIOLOGY REPORT PS360 ---
MRI-C-SPINE W/O, MRI-3D RENDERING/MYELOGRAM HISTORY: NECK PAIN, BACK PAIN ORDERING PHYSICIAN: Sergey Puentes MD PATIENT AGE: 37 years COMPARISON: None TECHNIQUE: Standard multiplanar multiecho sequences are performed without contrast. 3-D MIP and myelographic images are also rendered and reviewed LIMITATIONS: Patient's body habitus limits ocwuch-nm-wkrzz ratio. FINDINGS: There is normal alignment. The craniocervical junction is unremarkable. The disc spaces are preserved. No obvious disc herniation or canal stenosis. No obvious fracture. The spinal cord is grossly unremarkable IMPRESSION: Somewhat limited exam. No evidence of canal stenosis or disc herniation.
--- NOTE | 2017-07-11 12:47 | RADIOLOGY REPORT PS360 ---
MRI-C-SPINE W/O, MRI-3D RENDERING/MYELOGRAM HISTORY: NECK PAIN, BACK PAIN ORDERING PHYSICIAN: Sergey Puentes MD PATIENT AGE: 37 years COMPARISON: None TECHNIQUE: Standard multiplanar multiecho sequences are performed without contrast. 3-D MIP and myelographic images are also rendered and reviewed LIMITATIONS: Patient's body habitus limits zohjcc-da-xvygu ratio. FINDINGS: There is normal alignment. The craniocervical junction is unremarkable. The disc spaces are preserved. No obvious disc herniation or canal stenosis. No obvious fracture. The spinal cord is grossly unremarkable IMPRESSION: Somewhat limited exam. No evidence of canal stenosis or disc herniation.
--- NOTE | 2017-07-11 12:47 | RADIOLOGY REPORT PS360 ---
MRI-C-SPINE W/O, MRI-3D RENDERING/MYELOGRAM HISTORY: NECK PAIN, BACK PAIN ORDERING PHYSICIAN: Sergey Puentes MD PATIENT AGE: 37 years COMPARISON: None TECHNIQUE: Standard multiplanar multiecho sequences are performed without contrast. 3-D MIP and myelographic images are also rendered and reviewed LIMITATIONS: Patient's body habitus limits lzgrqw-sd-[id number] ratio. FINDINGS: There is normal alignment. The craniocervical junction is unremarkable. The disc spaces are preserved. No obvious disc herniation or canal stenosis. No obvious fracture. The spinal cord is grossly unremarkable IMPRESSION: Somewhat limited exam. No evidence of canal stenosis or disc herniation.
--- NOTE | 2017-07-11 12:54 | RADIOLOGY REPORT PS360 ---
MRI-L-SPINE W/O HISTORY: Low back pain NECK PAIN, BACK PAIN ORDERING PHYSICIAN: Sergey Puentes MD PATIENT AGE: 37 years COMPARISON: Radiograph of 06/16/2017 TECHNIQUE: Standard multiplanar multiecho sequences are performed without contrast. 3-D MIP and myelographic images are also rendered and reviewed FINDINGS: There is normal alignment. The spinal cord ends at the L1 level. L1-L2 and L2-L3 have an unremarkable appearance. L3-L4: Severe right-sided facet and ligamentum flavum hypertrophy with severe right lateral recess narrowing and severe canal stenosis greater on the right. The canal at this area measures approximately 8 mm centrally and in the right paracentral region measures approximately 5 mm in AP dimension. There is mild right-sided foraminal narrowing. L4-L5 shows minimal bulging disc along with mild facet ligamentum flavum hypertrophy. L5-S1 is unremarkable. IMPRESSION: 1. Severe right-sided facet and ligamentum flavum hypertrophy at L3-L4 with severe right lateral recess narrowing and severe canal stenosis greater on the right. The canal at this area measures approximately 8 mm centrally and in the right paracentral region measures approximately 5 mm in AP dimension. There is mild right-sided foraminal narrowing 2. Minimal bulging disc at L4-L5
== END ==
LOC: RAD 10:27
DX: M54.2 Cervicalgia (principal); M54.5 Low back pain

== ENCOUNTER → 2017-07-16 | Outpatient (CLI) | payer MEDICARE, MEDICAID ==
[2017-07-16 17:01] LABS: AMPHETAMINES/METAMPHETAMINES NEGATIVE ng/mL (<1000)
[2017-07-22 14:36] LABS: Opiates Negative (Cutoff=100)
== END ==
LOC: LAB 16:03
PROVIDERS: Emergency Medicine
DX: Z79.899 Other long term (current) drug therapy (principal)